=== PATIENT | female | born 1935 | race Caucasian/White ===

== ENCOUNTER → 2017-05-17 | Outpatient (CLI) | payer MEDICARE ==
--- NOTE | 2017-05-18 10:09 | MM ---
Reason for exam: screening (asymptomatic). Last mammogram was performed 1 year ago. History: Patient is postmenopausal. Family history of breast cancer in sister at age 60. Physical Findings: A clinical breast exam by your physician is recommended on an annual basis and results should be correlated with mammographic findings. MG 3D Screening Mammo W/Cad Bilateral CC and MLO view(s) were taken. Prior study comparison: May 15, 2016, bilateral MG 3d screening mammo w/cad. May 14, 2015, bilateral MG screening mammo w CAD. The breast tissue is heterogeneously dense. This may lower the sensitivity of mammography. No suspicious abnormality. No significant changes when compared with prior studies. ASSESSMENT: Negative, BI-RAD 1 RECOMMENDATION: Routine screening mammogram of both breasts in 1 year.
== END | disposition home or self-care (01) ==
LOC: RADMAMWWP 12:18
PROVIDERS: ATTEND Internal Medicine
DX: Z12.31 Encounter for screening mammogram for malignant neoplasm of breast (principal)
CPT/HCPCS: 77063; G0202

== ENCOUNTER → 2018-08-01 | Outpatient (CLI) | payer MEDICARE ==
--- NOTE | 2018-08-02 13:17 | MM ---
Reason for exam: screening (asymptomatic). Last mammogram was performed 1 year and 2 months ago. History: Patient is postmenopausal. Family history of breast cancer in sister at age 60. Physical Findings: A clinical breast exam by your physician is recommended on an annual basis and results should be correlated with mammographic findings. MG 3D Screening Mammo W/Cad Bilateral CC and MLO view(s) were taken. XCCM view(s) were taken of the right breast. Prior study comparison: May 17, 2017, bilateral MG 3d screening mammo w/cad. May 15, 2016, bilateral MG 3d screening mammo w/cad. The breast tissue is heterogeneously dense. This may lower the sensitivity of mammography. There are benign appearing round calcifications bilaterally. There is no discrete abnormality. ASSESSMENT: Benign, BI-RAD 2 RECOMMENDATION: Routine screening mammogram of both breasts in 1 year.
== END | disposition home or self-care (01) ==
LOC: RADMAMWWP 09:17
PROVIDERS: ATTEND Internal Medicine
DX: Z12.31 Encounter for screening mammogram for malignant neoplasm of breast (principal)
CPT/HCPCS: 77063; 77067

== ENCOUNTER → 2019-08-20 | Outpatient (CLI) | payer MEDICARE ==
--- NOTE | 2019-08-21 11:38 | MM ---
Reason for exam: screening (asymptomatic). Last mammogram was performed 1 year and 1 month ago. History: Patient is postmenopausal. Family history of breast cancer in sister at age 60. Physical Findings: A clinical breast exam by your physician is recommended on an annual basis and results should be correlated with mammographic findings. MG 3D Screening Mammo W/Cad Bilateral CC and MLO view(s) were taken. Prior study comparison: August 01, 2018, bilateral MG 3d screening mammo w/cad. May 17, 2017, bilateral MG 3d screening mammo w/cad. The breast tissue is heterogeneously dense. This may lower the sensitivity of mammography. There are benign appearing round calcifications bilaterally. There is no discrete abnormality. ASSESSMENT: Benign, BI-RAD 2 RECOMMENDATION: Routine screening mammogram of both breasts in 1 year.
== END | disposition home or self-care (01) ==
LOC: RADMAMWWP 09:09
PROVIDERS: ATTEND Internal Medicine
DX: Z12.31 Encounter for screening mammogram for malignant neoplasm of breast (principal)
CPT/HCPCS: 77063; 77067

== ENCOUNTER 2020-07-13 10:48 | Day surgery (SDC) | payer MEDICARE ==
[2020-07-09 14:38] VITALS: BMI 25.7
[~2020-07-13 10:48] MED LIST: ALPRAZolam 0.25 MG TAB PO PRN; ALPRAZolam 0.5 MG TAB PO PRN; ASPIRIN 325 MG TAB PO ONE; ATORVASTATIN 80 MG TAB PO ONE; NITROGLYCERIN SL TABS 0.4 MG TAB SUBLINGUAL PRN; fentaNYL (PF) 50 MCG/ML 2 ML AMP ONE
[2020-07-13] MEDS ORDERED: SODIUM CHLORIDE 0.9% 1,000 ML in EMPTY BAG 1 BAG IV ONE (11:00)
[2020-07-13] MEDS ORDERED: SODIUM CHLORIDE 0.9% 500 ML 1,000 ML IV ONE (11:20)
[2020-07-13] MEDS ORDERED: fentaNYL (PF) 50 MCG/ML 2 ML AMP ONE ×2 (11:24→14:47)
[2020-07-13] MEDS ORDERED: IV FLUID CONTINUATION 1,000 ML IV ONE (11:25)
[2020-07-13] MEDS: BENZOCAINE SPRAY 1 CAN MUCOUS MEM ONE ×2 (11:26→11:32)
[2020-07-13 11:33] LABS: Basophils # (A) 0.1 k/uL (0-0.2); Basophils % (A) 1 %; Eosinophils # (A) 0.1 k/uL (0-0.7); Eosinophils % (A) 1 %; HCT 44.5 % (34.0-46.0); HGB 14.7 gm/dL (11.4-16.0); Lymphocytes # (A) 1.8 k/uL (1.0-4.8); Lymphocytes % (A) 23 %; MCH 32.3 pg (25.0-35.0); MCHC 33.1 g/dL (31.0-37.0); MCV 97.6 fL (80.0-100.0); Mean Platelet Volume 7.4; Monocytes # (A) 0.5 k/uL (0-1.0); Monocytes % (A) 6 %; Neutrophils # (A) 5.2 k/uL (1.3-7.7); Neutrophils % (A) 67 %; Platelet Count 263 k/uL (150-450); RBC 4.56 m/uL (3.80-5.40); RDW 13.6 % (11.5-15.5); WBC 7.8 k/uL (3.8-10.6)
[2020-07-13] MEDS ORDERED: fentaNYL (PF) 50 MCG/ML 2 ML AMP IV ONE (11:45)
[2020-07-13] MEDS ORDERED: MIDAZOLAM 2 MG/2 ML VIAL IV ONE (11:45)
[2020-07-13 11:50] LABS: Calcium 10.2 mg/dL (8.4-10.2); Potassium 4.8 mmol/L (3.5-5.1)
[2020-07-13] MEDS ORDERED: LIDOCAINE 1% INJ 10MG/ML (20 ML MDV) ONE (13:17)
[2020-07-13] MEDS ORDERED: VERAPAMIL 2.5 MG/ML 2 ML AMP ONE (13:17)
[2020-07-13] MEDS ORDERED: LIDOCAINE 1% INJ 10MG/ML (20 ML MDV) SQ ONE (13:21)
[2020-07-13] MEDS ORDERED: ENALAPRILAT 1.25 MG/ML 1 ML VIAL ONE (13:26)
[2020-07-13] MEDS ORDERED: hydrALAZINE HCL 20 MG/ML 1 ML VIAL ONE (13:26)
[2020-07-13] MEDS ORDERED: ENALAPRILAT 1.25 MG/ML 1 ML VIAL IVP ONE (13:28)
[2020-07-13] MEDS: hydrALAZINE HCL 20 MG/ML 1 ML VIAL IVP ONE ×2 (13:28→13:37)
[2020-07-13] MEDS ORDERED: IOPAMIDOL-370 125ML BTL INJ ONE (13:42)
[2020-07-13] MEDS ORDERED: RX INFO: IV CONTRAST WAS GIVEN 1 EACH MISC MISCELLANE PRN (13:43)
[2020-07-13] MEDS ORDERED: SODIUM CHLORIDE 0.9% 1,000 ML IV SCH (13:45)
[2020-07-13] MEDS ORDERED: ATROPINE SULFATE 0.1 MG/ML 10ML SYRINGE ONE (13:53)
--- NOTE | 2020-07-13 14:04 | ECHOT ---
TRANSESOPHAGEAL ECHOCARDIOGRAM DATE OF SERVICE: 07/13/2020 PERFORMING PHYSICIAN: Abelino Escamilla MD. PROCEDURE PERFORMED: Transesophageal echocardiogram. INDICATION: This is a very a pleasant 85-year-old female patient with valvular heart disease and aortic stenosis and insufficiency was experiencing increasing in the shortness of breath with exertion. She underwent a surface echo recently and that revealed evidence of severe aortic stenosis and severe aortic insufficiency and because of that, she was brought today to undergo a KARI and heart catheterization. COMPLICATION: None. LEVEL OF SEDATION: Moderate with sedation length of 15 minutes. PROCEDURE DESCRIPTION: Please refer to diagnostic heart catheterization. After obtaining an informed consent, the patient was brought to the transesophageal echocardiogram suite. A pulse oximetry and heart rate monitors were attached to the patient. Subsequently, the transesophageal echocardiogram was advanced through the bite guard to the mid esophagus where 2D echocardiogram images as well as color Doppler images of various cardiac structures were obtained. The procedure was completed without any complication. FINDINGS: The left ventricular dimension and systolic function appeared to be within normal limits. The ejection fraction is probably in the range of 50%. The right ventricle appeared to be of normal size and function. The left atrium appeared to be severely dilated. The mitral valve appeared to be thickened and calcified with evidence of moderate mitral insufficiency. The aortic valve appeared to be also calcified and thickened with evidence of moderate aortic stenosis with a mean gradient of 28 and peak of 52, as well as moderate aortic insufficiency. The tricuspid valve appeared to have evidence of moderate tricuspid regurgitation. No evidence of pericardial effusion seen. CONCLUSION: 1. Low normal left ventricular dimension and systolic function. 2. Normal right ventricular dimension and systolic function. 3. Severe biatrial enlargement. 4. Aortic sclerosis with moderate aortic stenosis and moderate insufficiency. The mean gradient was 28 mmHg. 5. Thickened mitral valve leaflets with evidence of moderate mitral regurgitation. 6. Moderate tricuspid regurgitation. 7. No evidence of pericardial effusion. MMODL / IJN: [id number] /
[2020-07-13] MEDS ORDERED: NON FORMULARY DRUG (Magnesium Gluconate 500 MG Tab) PO SCH (14:15)
[2020-07-13] MEDS ORDERED: ONDANSETRON 4 MG/2 ML VIAL IVP STA (16:02)
--- NOTE | 2020-07-13 20:19 | US ---
EXAMINATION TYPE: US carotid duplex BILAT DATE OF EXAM: 07/13/2020 COMPARISON: US CLINICAL HISTORY: Pre-Op Cardiac Surgery. Pre op cardiac surgery. Previous smoker. EXAM MEASUREMENTS: RIGHT: Peak Systolic Velocity (PSV) cm/sec ----- Right CCA: 87.1 ----- Right ICA: 170.1 ----- Right ECA: 102.6 ICA/CCA ratio: 2.0 RIGHT: End Diastole cm/sec ----- Right CCA: 14.6 ----- Right ICA: 20.3 ----- Right ECA: 0.0 LEFT: Peak Systolic Velocity (PSV) cm/sec ----- Left CCA: 60.8 ----- Left ICA: 380.2 ----- Left ECA: 171.0 ICA/CCA ratio: 6.3 LEFT: End Diastole cm/sec ----- Left CCA: 11.3 ----- Left ICA: 59.6 ----- Left ECA: 0.0 VERTEBRALS (direction of flow): Right Vertebral: Antegrade Left Vertebral: Antegrade Rhythm: Normal Intimal thickening and plaque seen bilaterally. Hyperechoic plaque with shadowing seen right ICA, lef t carotid bifurcation, left ICA and left ECA. Elevated velocities right ICA, left ICA, and left ECA. Right ICA/CCA: 2.0. Left ICA/CCA: 6.3. Stenosi s visualized. Limited due to patient movement. IMPRESSION: Images and measurements suggest more than 70% stenosis in the left internal carotid artery and 50-70% stenosis in the right internal carotid artery. There is also stenosis in the external carotid arteries. Criteria for Assigning % of Stenosis / Diameter reduction (Estimation based on the indirect measurements of the internal carotid artery velocities (ICA PSV). 1. Normal (no stenosis)=ICA PSV < 125 cm/s: ratio < 2.0: ICA EDV<40 cm/s. 2. Less than 50% stenosis=ICA PSV < 125 cm/s: ratio < 2.0: ICA EDV<40 cm/s. 3. 50 to 69% stenosis=ICA PSV of 125 to 230 cm/s: ration 2.0 ? 4.0: ICA EDV 40-100 cm/s. 4. Greater than 70% stenosis to near occlusion= ICA PSV > 230 cm/s: ratio > 4.0: ICA EDV > 100 cm/s. 5. Near occlusion= ICA PSV velocities may be low or undetectable: variable ratio and ICA EDV. 6. Total occlusion=unable to detect flow.
[2020-07-13] MEDS: ATORVASTATIN 20 MG TAB PO SCH (21:21)
--- NOTE | 2020-07-13 21:55 | CC ---
CARDIAC CATHETERIZATION REPORT DATE OF SERVICE: 07/13/2020 PERFORMING PHYSICIAN: Abelino Escamilla M.D. PROCEDURE PERFORMED: Selective right and left coronary angiogram. INDICATION: This is a very pleasant 85-year-old female patient who is in reasonable physical and mental shape with aortic stenosis and hypertension and dyslipidemia and history of bradycardia. She was experiencing increasing shortness of breath with minimal exertion. Recent echocardiogram showed progression in the severity of the aortic stenosis as well as mitral regurgitation. Recent stress test came in to be remarkable for ischemia. Because of that, a heart catheterization was advised. APPROACH: Right common femoral artery. COMPLICATIONS: None. LEVEL OF SEDATION: Moderate, with sedation length of 15 minutes. PROCEDURE DESCRIPTION: After obtaining informed consent, the patient was brought to the cardiac molder labels. The right common femoral artery was cannulated using micropuncture technique. The micropuncture wire passed easily. Then I did place a 6-Palestinian sheath. After that I did selective right and left coronary angiogram using JL4 and JR4 catheters. The procedure was completed without any complication. SELECTIVE CORONARY ANGIOGRAM: 1. Right coronary artery is extremely calcified. The ostial of right coronary artery has a tight lesion that appeared to be in the range of 80% to 90%. The RCA in the mid and distal portions appeared to have mild disease only. 2. The left main is extremely calcified. The ostial left main has a tubular lesion that appeared to be in the range of 50% to 60%. There is post-stenotic dilatation identified. The left main bifurcates into LCX and LAD. 3. The LCX is a large-caliber vessel. It is a nondominant vessel and appeared to be angiographically normal. It gives rise to an OM1 and OM2 and both appeared to have mild disease only. 4. The LAD is a large-caliber vessel. The LAD was not well opacified, but there was no evidence of any significant or high-grade stenosis identified. CONCLUSION: 1. Calcified right and left coronary systems. 2. Critical disease involving the ostial right coronary artery. 3. Severe disease involving the ostial left main coronary artery. POST-PROCEDURE MANAGEMENT: 1. Consult surgeon for evaluation of coronary artery bypass grafting. 2. Follow up with the patient. MMODL / IJN: [id number] /
[2020-07-14 03:52] LABS: Hepatitis A Antibody IgM Non-Reactive (Non-Reactive); Hepatitis B Core IgM Non-Reactive (Non-Reactive); Hepatitis B Surface Antigen Non-Reactive (Non-Reactive); Hepatitis C IgG Antibody Non-Reactive (Non-Reactive)
[2020-07-14 06:01] LABS: Basophils # (A) 0.1 k/uL (0-0.2); Basophils % (A) 1 %; Eosinophils % (A) 1 %; HCT 37.2 % (34.0-46.0); HGB 12.4 gm/dL (11.4-16.0); Lymphocytes # (A) 1.7 k/uL (1.0-4.8); Lymphocytes % (A) 21 %; MCHC 33.4 g/dL (31.0-37.0); MCV 98.8 fL (80.0-100.0); Mean Platelet Volume 7.4; Monocytes # (A) 0.5 k/uL (0-1.0); Monocytes % (A) 7 %; Neutrophils # (A) 5.7 k/uL (1.3-7.7); Neutrophils % (A) 70 %; Platelet Count 218 k/uL (150-450); RBC 3.77 m/uL (3.80-5.40); RDW 13.7 % (11.5-15.5); WBC 8.1 k/uL (3.8-10.6)
[2020-07-14 06:16] LABS: Albumin 3.6 g/dL (3.5-5.0); Magnesium 2.2 mg/dL (1.6-2.3); Total Bilirubin 0.9 mg/dL (0.2-1.3); Total Protein 6.3 g/dL (6.3-8.2)
[2020-07-14 06:18] LABS: INR 0.9 (<1.2); Prothrombin Time 9.9 sec (9.0-12.0)
[2020-07-14 06:34] LABS: Partial Thromboplastin Time 21.9 sec (22.0-30.0)
--- NOTE | 2020-07-14 07:33 | XR ---
EXAMINATION TYPE: XR chest 2V DATE OF EXAM: 07/14/2020 COMPARISON: None HISTORY: 85-year-old female preop cardiac surgery TECHNIQUE: PA and lateral views FINDINGS: Heart upper limits of normal in size. Atherosclerotic arch calcifications. Diffuse interstitial densi ty. Possible trace effusion on the lateral view. IMPRESSION: Borderline cardiomegaly and interstitial change. Trace effusion suggested on the lateral view. Correl ate for mild CHF with pulmonary vascular congestion.
[2020-07-14] MEDS ORDERED: NON FORMULARY DRUG (Fish Oil/Dha/Epa [Fish Oil 1,200 Mg Fish Oil] 1 EACH Capsule) PO SCH (09:00)
[2020-07-14] MEDS: CALCIUM CARB-VIT D 500MG-200UN 1 EACH TAB PO SCH (09:09)
[2020-07-14] MEDS: ASPIRIN 81 MG PO SCH (09:09)
--- NOTE | 2020-07-14 09:19 | CT ---
EXAMINATION TYPE: CT chest wo con DATE OF EXAM: 07/14/2020 COMPARISON: None HISTORY: evaluation of aorta calcifications CT DLP: 304.[address] of the chest was performed with lung and mediastinal window settings submitted. The la ck of contrast limits evaluation of the vascular, mediastinal and parenchymal structures including th e upper abdomen. LUNGS: The lungs are clear and free of infiltrate. No atelectasis. No pulmonary nodule or mass is de tected. No pleural effusion. No CT evidence of interstitial lung disease. MEDIASTINUM/LIVAN: Aortic evaluation is limited given lack of intravenous contrast. There is atheromat ous changes seen throughout the thoracic aorta. 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 The heart is mildly enlarged. No evidence for mediastinal mass. No lymph nodes gr eater than 1cm. UPPER ABDOMEN: Atrophic changes of the right kidney. Renal nephrolithiasis identified. OTHER: No significant other abnormality. IMPRESSION: 1. Atheromatous and ectatic change of the thoracic aorta. 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
--- NOTE | 2020-07-14 10:44 | P.GSCN ---
History of Present Illness Consult date: 07/14/20 Reason for Consult: Coronary artery disease, valvular heart disease Requesting physician: Abelino Escamilla History of present illness: This is an 85-year-old active female who follows on an outpatient basis with Dr. Cornell for primary care as well as Dr. Escamilla for cardiology. She has a previous medical history of aortic stenosis, hypertension, hyperlipidemia, TIAs with bilateral carotid stenosis followed by Dr. Dexter, and previous tobacco dependence. She has been expensing symptoms of increased shortness of breath w ith exertion, denies any chest pain, lower extremity edema, syncope, or any other symptomatology. Her most recent transthoracic echocardiogram completed in Dr. Escamilla's office demonstrating progression in her valvular heart disease with severe aortic stenosis and severe aortic insufficiency. She had a stress test which was abnormal. She was recommended to undergo transesophageal echocardiogram and heart catheterization which were completed yesterday. Heart catheterization demonstrated ostial RCA stenosis 80-90% and very heavily calcified ostial left main stenosis 50-60%. Transesophageal echocardiogram demonstrated low normal left ventricular systolic function with EF 50%, dilated left atrium, moderate mitral regurgitation, moderate aortic stenosis with peak/mean gradients 52 mmHg/28 mmHg, moderate aortic insufficiency, and moderate tricuspid regurgitation. Due to these findings Dr. Zamarripa from cardiothoracic surgery was consulted for recommendations. Of note after her procedures y esterday patient's heart rate dropped into the 30s with low blood pressure, patient was given atropine and fluid boluses with improvement in her hemodynamics. Review of Systems Review of systems was completed and was negative except as noted - Cardiovascular Reports as per HPI, Reports dyspnea on exertion 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 Past Anesthesia/Blood Transfusion Reactions: No Reported Reaction Past Psychological History: No Psychological Hx Reported Smoking Status: Former smoker Past Alcohol Use History: Rare Past Drug Use History: None Reported - Past Family History Brother(s) Family Medical History: Cancer Sister(s) Family Medical History: Cancer Medications and Allergies Home Medications Medication Instructions Recorded Confirmed Type Alendronate Sodium 70 mg PO MO 03/04/15 07/13/20 History Aspirin 81 mg PO DAILY 03/04/15 07/13/20 History Calcium Carbonate/Vitamin D3 1 each PO DAILY 03/04/15 07/13/20 History [Calcium 600 + Vit D Tablet] Fish Oil/Dha/Epa [Fish Oil 1,200 1 each PO DAILY 03/04/15 07/13/20 History mg Fish Oil] Magnesium Gluconate [Magonate] 500 mg PO ONCE 03/04/15 07/13/20 History Simvastatin [Zocor] 40 mg PO HS 03/04/15 07/13/20 History amLODIPine [Norvasc] 5 mg PO QAM 03/04/15 07/13/20 History atenoloL [Atenolol] 12.5 mg PO DAILY 07/09/20 07/13/20 History Allergies Allergy/AdvReac Type Severity Reaction Status Date / Time venom-honey bee Allergy Swelling Verified 07/09/20 14:29 [bee venom (honey bee)] Surgical - Exam Vital Signs Temp Pulse Resp BP Pulse Ox 98 F 48 L 16 192/85 97 07/13/20 11:16 07/13/20 11:16 07/13/20 11:16 07/13/20 11:16 07/13/20 11:16 - General well developed, well nourished, no distress, no pain - Eyes normal ocular movement - ENT Patient has none of her own teeth dentures - Neck no masses, no bruits, trachea midline - Respiratory Lungs sounds diminished bilaterally. Respirations even, nonlabored. Currently on room air with oxygen saturation 94%. No chest wall deformities. No clubbing or cyanosis present. - Cardiovascular S1, S2 present. Systolic murmur heard. Slow but regular rate and rhythm, sinus bradycardia on telemetry. Palpable peripheral pulses bilaterally. No edema present. No calf pain or tenderness noted. - Abdomen Abdomen: soft, non tender, bowel sounds - Genitourinary Deferred - Rectum Deferred - Integumentary no rash, no growths - Neurologic normal coordination, normal sensation - Musculoskeletal normal posture - Psychiatric oriented to time, oriented to person, oriented to place, speech is normal Results - Labs 07/14/20 05:15 07/14/20 05:15 Abnormal Lab Results - Last 24 Hours (Table) 07/13/20 07/14/20 07/14/20 Range/Units 11: 05:15 05:15 RBC 3.77 L (3.80-5.40) m/uL APTT 21.9 L (22.0-30.0) sec BUN 30 H (7-17) mg/dL Creatinine 1.46 H (0.52-1.04) mg/dL Glucose 110 H (74-99) mg/dL AST (14-36) U/L HDL Cholesterol (40-60) mg/dL 07/14/20 Range/Units 05:15 RBC (3.80-5.40) m/uL APTT (22.0-30.0) sec BUN 32 H (7-17) mg/dL Creatinine 1.52 H (0.52-1.04) mg/dL Glucose (74-99) mg/dL AST 42 H (14-36) U/L HDL Cholesterol 30 L (40-60) mg/dL Microbiology - Last 24 Hours (Table) 07/13/20 22:40 Nasal Screen MRSA/MSSA - Preliminary Nasal Swab Diabetes panel 07/13/20 07/14/20 Range/Units 11: 05:15 Sodium 141 139 (137-145) mmol/L Potassium 4.8 5.0 (3.5-5.1) mmol/L Chloride 105 107 (98-107) mmol/L Carbon Dioxide 27 28 (22-30) mmol/L BUN 30 H 32 H (7-17) mg/dL Creatinine 1.46 H 1.52 H (0.52-1.04) mg/dL Glucose 110 H 94 (74-99) mg/dL Calcium 10.2 9.0 (8.4-10.2) mg/dL AST 42 H (14-36) U/L ALT 14 (4-34) U/L Alkaline Phosphatase 45 (38-126) U/L Total Protein 6.3 (6.3-8.2) g/dL Albumin 3.6 (3.5-5.0) g/dL Triglycerides 133 (<150) mg/dL HDL Cholesterol 30 L (40-60) mg/dL Thyroid panel 07/14/20 Range/Units 05:15 TSH 1.950 (0.465-4.680) mIU/L Calcium panel 07/13/20 07/14/20 Range/Units 11:11 05:15 Calcium 10.2 9.0 (8.4-10.2) mg/dL Albumin 3.6 (3.5-5.0) g/dL Pituitary panel 07/13/20 07/14/20 Range/Units 11:11 05:15 Sodium 141 139 (137-145) mmol/L Potassium 4.8 5.0 (3.5-5.1) mmol/L Chloride 105 107 (98-107) mmol/L Carbon Dioxide 27 28 (22-30) mmol/L BUN 30 H 32 H (7-17) mg/dL Creatinine 1.46 H 1.52 H (0.52-1.04) mg/dL Glucose 110 H 94 (74-99) mg/dL Calcium 10.2 9.0 (8.4-10.2) mg/dL TSH 1.950 (0.465-4.680) mIU/L Adrenal panel 07/13/20 07/14/20 Range/Units 11:11 05:15 Sodium 141 139 (137-145) mmol/L Potassium 4.8 5.0 (3.5-5.1) mmol/L Chloride 105 107 (98-107) mmol/L Carbon Dioxide 27 28 (22-30) mmol/L BUN 30 H 32 H (7-17) mg/dL Creatinine 1.46 H 1.52 H (0.52-1.04) mg/dL Glucose 110 H 94 (74-99) mg/dL Calcium 10.2 9.0 (8.4-10.2) mg/dL Total Bilirubin 0.9 (0.2-1.3) mg/dL AST 42 H (14-36) U/L ALT 14 (4-34) U/L Alkaline Phosphatase 45 (38-126) U/L Total Protein 6.3 (6.3-8.2) g/dL Albumin 3.6 (3.5-5.0) g/dL - Imaging Chest x-ray: image reviewed Additional studies: Heart catheterization and KARI films reviewed with Dr. Zamarripa Assessment and Plan Assessment: 1. Coronary artery disease with left main disease 2. Moderate aortic stenosis, moderate aortic insufficiency, peak/mean gradient 52 mmHg/20 mmHg on KARI 3. Moderate mitral regurgitation, moderate tricuspid regurgitation and KARI 4. Bradycardia 5. Hypertension 6. Hyperlipidemia, treated, cholesterol 107, LDL 50 7. History of TIAs 8. Bilateral carotid stenosis followed by Dr. Dexter, current carotid Doppler greater than 70% left internal carotid artery, 50-70% right internal carotid artery 9. Previous tobacco dependence Plan: The patient was seen and examined at the bedside with Dr. Zamarripa. Chart/diagnostics were reviewed. The usual perioperative course of open surgery was discussed with the patient and her daughter yesterday, risks and benefits were reviewed, all questions were answered. We recommend continuing aspirin, statin, beta tabatha. CT of the chest was ordered to evaluate for calcification in the ascending aorta. Preoperative testing was initiated. More recommendations to follow once preoperative testing has been completed and reviewed. Continue medical management per Dr. Escamilla. Thank you Dr. Escamilla for this consult. We look forward to working with you in the care of your patient The patient was seen and examined and I agree with the assessment and plan documented by the nurse practitioner Time with Patient: Greater than 30
[2020-07-14] MEDS: amLODIPine 5 MG TAB PO SCH (11:26)
--- NOTE | 2020-07-14 13:11 | P.PN ---
Subjective Progress Note Date: 07/14/20 HISTORY OF PRESENT ILLNESS: Patient is status post cardiac catheterization with Dr. Escamilla revealing calcified right and left coronary systems, critical disease involving the ostial right coronary artery, and severe disease involving the ostial left main coronary artery. She also underwent KARI revealing severe right atrial enlargement, aortic sclerosis with moderate aortic stenosis and moderate insufficiency. Thickened mitral valve leaflets with evidence of moderate mitral regurgitation and moderate tricuspid regurgitation. Cardiothoracic surgery was consulted for evaluation. Patient was examined this morning at the bedside. She denies chest pain or pressure. She states she has been up ambulating to the bathroom without shortness of breath. Blood pressure this morning 176/51. Heart rate in the 60s. PHYSICAL EXAM: VITAL SIGNS: Reviewed. GENERAL: Well-developed in no acute distress. NECK: Supple. No JVD or thyromegaly LUNGS: Respirations even and unlabored. Lungs essentially clear to auscultation bilaterally. HEART: Bradycardic. Regular rate and rhythm. S1 and S2 heard. Systolic murmur. EXTREMITIES: Normal range of motion. No clubbing or cyanosis. Peripheral pulses intact. No lower extremity edema ASSESSMENT: Coronary artery disease with left main disease Moderate aortic stenosis and moderate aortic insufficiency Moderate mitral regurgitation Moderate tricuspid regurgitation Hypertension Hyperlipidemia Bilateral carotid stenosis History of nicotine dependence PLAN: Resume home cardiac medications Monitor blood pressure Continue telemetry monitoring Cardiothoracic surgery has been consulted. Await evaluation and recommendations. Nurse practitioner note has been reviewed by physician. Signing provider agrees with the documented findings, assessment, and plan of care. Objective - Vital Signs Vital signs: Vital Signs Temp 98.4 F 07/14/20 12:00 Pulse 55 L 07/14/20 12:00 Resp 18 07/14/20 12:00 BP 145/59 07/14/20 12:00 Pulse Ox 92 L 07/14/20 12:00 Intake & Output 07/13/20 07/14/20 07/14/20 18:59 06:59 18:59 Intake Total 1430 200 240 Output Total 200 Balance 1430 200 40 Weight 59.6 kg 62.5 kg Intake: IV 1250 Sodium Chloride 0.9% 1, 750 000 ml @ 75 mls/hr IV . [id number] [facility] Rx#:[id number] Intake, IV Titration 0 200 Amount Sodium Chloride 0.9% 1, 0 000 ml @ 75 mls/hr IV . [id number] [facility] Rx#:[id number] Sodium Chloride 0.9% 1, 200 000 ml In Empty Bag 1 bag @ 100 mls/hr IV .Q10H [facility] Rx#:[id number] Oral 180 240 Output: Urine 200 Other: Voiding Method Toilet Toilet # Voids 3 1 - Labs CBC & Chem 7: 07/14/20 05:15 07/14/20 05:15 Labs: Abnormal Lab Results - Last 24 Hours (Table) 07/14/20 07/14/20 07/14/20 Range/Units 05:15 05:15 05:15 RBC 3.77 L (3.80-5.40) m/uL APTT 21.9 L (22.0-30.0) sec BUN 32 H (7-17) mg/dL Creatinine 1.52 H (0.52-1.04) mg/dL AST 42 H (14-36) U/L HDL Cholesterol 30 L (40-60) mg/dL Microbiology - Last 24 Hours (Table) 07/13/20 22:40 Nasal Screen MRSA/MSSA - Preliminary Nasal Swab
[2020-07-14 15:59] LABS: Hemoglobin A1C 5.8 % (4.0-6.0)
[2020-07-14] MEDS: ATORVASTATIN 20 MG TAB PO SCH (20:33)
[2020-07-15] MEDS: CALCIUM CARB-VIT D 500MG-200UN 1 EACH TAB PO SCH (08:55)
[2020-07-15] MEDS: amLODIPine 5 MG TAB PO SCH (08:55)
[2020-07-15] MEDS: ASPIRIN 81 MG PO SCH (08:55)
[2020-07-15 09:02] VITALS: PULSE 57; RESP 17
[2020-07-15 11:47] VITALS: TEMP 98
[2020-07-15 12:50] VITALS: BP 152/70
--- NOTE | 2020-07-15 13:02 | P.DS ---
Providers Date of admission: 85-year-old female who recently had a positive stress test and was recommended to have a cardiac cath. She underwent cardiac catheterization with Dr. Escamilla revealing calcified right and left coronary systems, critical disease involving the ostial right coronary artery, and severe disease involving the ostial left main coronary artery. She also underwent KARI revealing severe right atrial enlargement, aortic sclerosis with moderate aortic stenosis and moderate insufficiency. Thickened mitral valve leaflets with evidence of moderate mitral regurgitation and moderate tricuspid regurgitation. Cardio thoracic surgery was consulted to evaluate patient. Dr. Zamarripa evaluated the patient and determine the patient's aorta was severely calcified throughout making unclampable for surgery. She was deemed too high risk for cardiac surgery and medical management was recommended. The patient is currently stable for discharge today. She is to follow up outpatient with Dr. Hernandez. Please see EMR for further hospital course details. 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 Signing provider agrees with the documented findings, assessment, and plan of care. Attending physician: Abelino Escamilla Consults: 07/13/20 14:10 Consult Physician Stat Consulting Provider: Louie Naqvi Consult Reason/Comments: valve and blockages Do you want consulting provider notified?: Yes Primary care physician: Raza Cornell Plan - Discharge Summary Discharge Rx Participant: Yes New Discharge Prescriptions: Continue Simvastatin [Zocor] 40 mg PO HS Magnesium Gluconate [Magonate] 500 mg PO ONCE Aspirin 81 mg PO DAILY amLODIPine [Norvasc] 5 mg PO QAM Fish Oil/Dha/Epa [Fish Oil 1,200 mg Fish Oil] 1 each PO DAILY Calcium Carbonate/Vitamin D3 [Calcium 600-Vit D3 400 Tablet] 1 each PO DAILY Alendronate Sodium 70 mg PO MO atenoloL [Atenolol] 12.5 mg PO DAILY Discharge Medication List Alendronate Sodium 70 mg PO MO 03/04/15 [History] Aspirin 81 mg PO DAILY 03/04/15 [History] Calcium Carbonate/Vitamin D3 [Calcium 600-Vit D3 400 Tablet] 1 each PO DAILY 03/04/15 [History] Fish Oil/Dha/Epa [Fish Oil 1,200 mg Fish Oil] 1 each PO DAILY 03/04/15 [History] Magnesium Gluconate [Magonate] 500 mg PO ONCE 03/04/15 [History] Simvastatin [Zocor] 40 mg PO HS 03/04/15 [History] amLODIPine [Norvasc] 5 mg PO QAM 03/04/15 [History] atenoloL [Atenolol] 12.5 mg PO DAILY 07/09/20 [History] Follow up Appointment(s)/Referral(s): Abelino Escamilla MD [STAFF PHYSICIAN] - 1 Week
[2020-07-19] MEDS ORDERED: NON FORMULARY DRUG (Alendronate Sodium [Alendronate Sodium] 70 MG Tablet) PO SCH (14:05)
== END 2020-07-15 14:08 | disposition home or self-care (01) ==
LOC: CATHCVL 10:48 → 3SCARD 17:03 → CATHCVL 07-15 14:08
PROVIDERS: ATTEND Internal Medicine Interventional Cardiology
DX: I25.10 Atherosclerotic heart disease of native coronary artery without angina pectoris (principal); I25.84 Coronary atherosclerosis due to calcified coronary lesion; I08.3 Combined rheumatic disorders of mitral, aortic and tricuspid valves; I65.23 Occlusion and stenosis of bilateral carotid arteries; I71.2 Thoracic aortic aneurysm, without rupture; I10 Essential (primary) hypertension; E78.5 Hyperlipidemia, unspecified; R00.1 Bradycardia, unspecified; Z82.49 Family history of ischemic heart disease and other diseases of the circulatory system; Z72.0 Tobacco use; Z79.899 Other long term (current) drug therapy
CPT/HCPCS: 94150; 93312; 93320; 93005; 93325; 93454; 80061; 80053; 80048; 80074; 84443; 83735; 85025 ×2; 85610; 85730; 87070; 83036; 71046; 93970; 93922; 93880; 71250; C1769 ×3; C1894 ×2; J2250; J0360; J2405; J2001; J0461; J3010; Q9967

== ENCOUNTER → 2020-10-21 | Outpatient (CLI) | payer MEDICARE ==
--- NOTE | 2020-10-22 14:02 | MM ---
Reason for exam: screening (asymptomatic). Last mammogram was performed 1 year and 2 months ago. History: Patient is postmenopausal. Family history of breast cancer in sister at age 60. Physical Findings: A clinical breast exam by your physician is recommended on an annual basis and results should be correlated with mammographic findings. MG 3D Screening Mammo W/Cad Bilateral CC and MLO view(s) were taken. Prior study comparison: August 20, 2019, bilateral MG 3d screening mammo w/cad. August 01, 2018, bilateral MG 3d screening mammo w/cad. The breast tissue is heterogeneously dense. This may lower the sensitivity of mammography. Stable benign calcifications. There is no discrete abnormality. No significant changes when compared with prior studies. ASSESSMENT: Benign, BI-RAD 2 RECOMMENDATION: Routine screening mammogram of both breasts in 1 year.
== END | disposition home or self-care (01) ==
LOC: RADMAMWWP 07:48
PROVIDERS: ATTEND Nurse Practitioner Adult Health
DX: Z12.31 Encounter for screening mammogram for malignant neoplasm of breast (principal)
CPT/HCPCS: 77063; 77067

== ENCOUNTER 2021-03-26 17:56 | Emergency (ER) | payer MEDICARE ==
[2021-03-26 18:04] VITALS: TEMP 98.7
[2021-03-26 18:15] VITALS: PULSE 58; RESP 20
--- NOTE | 2021-03-26 18:23 | ED ---
Skin/Abscess/FB HPI - General Chief complaint: Skin/Abscess/Foreign Body Stated complaint: fall, skin tear rt arm Source: patient, family, RN notes reviewed Mode of arrival: ambulatory Limitations: no limitations - History of Present Illness Initial comments: 85-year-old white female, alert and oriented 4 in no acute distress, presents to the emergency room after tripping in the house sustaining a skin tear to the right upper extremity, mid upper arm and distal forearm. Patient states that her tetanus shot is not up-to-date. She denies any pain and she has full range of motion. She states that any slight trauma causes skin tears. Family at bedside states that she witnessed the patient fall and did not hit her head there was no loss of consciousness. Patient denies any C-spine tenderness. Patient has a history of high blood pressure family states that she has white coat syndrome. MD complaint: laceration -: hour(s) (Less than an hour) Tetanus Up to Date: no Location: RUE Severity scale (1-10): 0 Associated symptoms: denies other symptoms Treatments Prior to Arrival: none - Related Data Home Medications Medication Instructions Recorded Confirmed Alendronate Sodium 70 mg PO MO 03/04/15 07/13/20 Aspirin 81 mg PO DAILY 03/04/15 07/13/20 Calcium Carbonate/Vitamin D3 1 each PO DAILY 03/04/15 07/13/20 [Calcium 600-Vit D3 400 Tablet] Fish Oil/Dha/Epa [Fish Oil 1,200 1 each PO DAILY 03/04/15 07/13/20 mg Fish Oil] Magnesium Gluconate [Magonate] 500 mg PO ONCE 03/04/15 07/13/20 Simvastatin [Zocor] 40 mg PO HS 03/04/15 07/13/20 amLODIPine [Norvasc] 5 mg PO QAM 03/04/15 07/13/20 atenoloL [Atenolol] 12.5 mg PO DAILY 07/09/20 07/13/20 Allergies Allergy/AdvReac Type Severity Reaction Status Date / Time venom-honey bee Allergy Swelling Verified 03/26/21 18:04 [bee venom (honey bee)] Review of Systems ROS Statement: Those systems with pertinent positive or pertinent negative responses have been documented in the HPI. ROS Other: All systems not noted in ROS Statement are negative. Past Medical History Past Medical History: Coronary Artery Disease (CAD), CVA/TIA, Hyperlipidemia, Hypertension, Vascular Disorder Additional Past Medical History / Comment(s): recent hx of SOB, CVA X2, no residual effects, states following with Dr Dexter for some blockages in carotid arteries and legs History of Any Multi-Drug Resistant Organisms: None Reported Past Surgical History: Heart Catheterization, Orthopedic Surgery, Tubal Ligation Additional Past Surgical History / Comment(s): leora carpal tunnel, leora cataracts, [facility] 07/13/2020-TRIPLE VESSES DX Past Anesthesia/Blood Transfusion Reactions: No Reported Reaction Past Psychological History: No Psychological Hx Reported Smoking Status: Former smoker Past Alcohol Use History: Rare Past Drug Use History: None Reported - Past Family History Brother(s) Family Medical History: Cancer Sister(s) Family Medical History: Cancer General Exam Limitations: no limitations General appearance: alert, in no apparent distress Head exam: Present: atraumatic, normocephalic, normal inspection Eye exam: Present: normal appearance, PERRL, EOMI. Absent: scleral icterus, conjunctival injection, periorbital swelling ENT exam: Present: normal exam, normal oropharynx, mucous membranes moist Neck exam: Present: normal inspection, full ROM. Absent: tenderness, meningismus, lymphadenopathy, thyromegaly Respiratory exam: Present: normal lung sounds bilaterally. Absent: respiratory distress, wheezes, rales, rhonchi, stridor, chest wall tenderness, accessory muscle use, decreased breath sounds, prolonged expiratory Cardiovascular Exam: Present: regular rate, normal rhythm, normal heart sounds. Absent: systolic murmur, diastolic murmur, rubs, gallop, clicks GI/Abdominal exam: Present: soft, normal bowel sounds. Absent: distended, tenderness, guarding, rebound, rigid Extremities exam: Present: normal inspection, full ROM, normal capillary refill. Absent: tenderness, pedal edema, joint swelling, calf tenderness Back exam: Present: full ROM. Absent: tenderness, CVA tenderness (R), CVA tenderness (L), muscle spasm, paraspinal tenderness, vertebral tenderness Neurological exam: Present: alert, oriented X3, CN II-XII intact Psychiatric exam: Present: normal affect, normal mood Skin exam: Present: warm, dry, intact, normal color, other (Skin tears to right upper arm and right distal forearm). Absent: rash, cyanosis, diaphoretic, erythema, petechiae, pallor, mottled Course Vital Signs 03/26/21 03/26/21 03/26/21 18:00 18:14 18:25 Temperature 98.7 F Pulse Rate 62 58 L Respiratory 16 20 Rate Blood Pressure 196/119 201/60 180/60 O2 Sat by Pulse 98 96 Oximetry Procedures - Laceration Laceration #1 Site: upper extremity Description: flap (Skin tear to the upper and lower forearm) Depth: simple, single layer Sedation/Analgesia: none Type of Sutures: other (Dermal glue) Medical Decision Making - Medical Decision Making 85-year-old well-appearing patient anal 4, has no complaints of pain. She presents with skin tears to the right upper approximately 3 x 6 cm and right lower forearm approximately 4 cm. Her wounds were irrigated with normal saline, approximated and closed with Steri-Strips and dermal glue. Reasons tetanus shot was updated. Case was discussed with Dr. Herrera patient will be discharged home follow-up with primary care doctor and directed to return if worsening symptoms including signs of infection, or fever. Disposition Clinical Impression: Skin tear, Fall Disposition: HOME SELF-CARE Condition: Good Instructions (If sedation given, give patient instructions): Fall Prevention for Older Adults (ED), Skin Adhesive Care (ED), Skin Tear (ED) Additional Instructions: Keep wounds clean. Follow-up with the primary care doctor in 1 week. Return if any worsening symptoms including signs of infection, fever or drainage. Is patient prescribed a controlled substance at d/c from ED?: No Referrals: None,Stated [Primary Care Provider] - 1-2 days Time of Disposition: 18:36
[2021-03-26 18:26] VITALS: BP 180/60
[2021-03-26] MEDS ORDERED: DIPH,PERTUS(ACELL)TETVAC-LF 0.5 ML VIAL IM ONE (18:32)
[2021-03-26] MEDS ORDERED: TOPICAL SKIN ADHESIVE 1 EACH AMP TOPICAL ONE (18:32)
[2021-03-26] MEDS ORDERED: LIDOCAINE/EPINEPHR/TETRACAINE 5 ML BOTTLE TOPICAL ONE (18:33)
== END 2021-03-26 19:21 | disposition home or self-care (01) ==
LOC: EC 17:56
DX: S41.111A Laceration without foreign body of right upper arm, initial encounter (principal); I10 Essential (primary) hypertension; I25.10 Atherosclerotic heart disease of native coronary artery without angina pectoris; E78.5 Hyperlipidemia, unspecified; Z79.899 Other long term (current) drug therapy; Z87.891 Personal history of nicotine dependence; Z91.030 Bee allergy status; Z23 Encounter for immunization; W01.0XXA Fall on same level from slipping, tripping and stumbling without subsequent striking against object, initial encounter
CPT/HCPCS: 12001; 90471; 90715; 99282; 99285

== ENCOUNTER 2021-07-05 06:45 | Day surgery (SDC) | payer MEDICARE ==
[2021-07-01 13:47] VITALS: BMI 25.0
[~2021-07-05 06:45] MED LIST changes: -ASPIRIN 325 MG TAB PO ONE; +ASPIRIN 325 MG TAB PO STA; -ATORVASTATIN 80 MG TAB PO ONE; +ATORVASTATIN 80 MG TAB PO STA; +HEPARIN SODIUM,PORCINE 10,000 UNIT in SODIUM CHLORIDE 0.9% 1,000 ML IRRIGATION PRN; +HEPARIN SODIUM,PORCINE 2,500 UNIT in SODIUM CHLORIDE 0.9% 250 ML IRRIGATION PRN; +SODIUM CHLORIDE 0.9% 1,000 ML in EMPTY BAG 1 BAG IV SCH; -fentaNYL (PF) 50 MCG/ML 2 ML AMP ONE
[2021-07-05] MEDS ORDERED: SODIUM CHLORIDE 0.9% 1,000 ML in EMPTY BAG 1 BAG IV ONE (07:00)
[2021-07-05] MEDS ORDERED: SODIUM CHLORIDE 0.9% 1,000 ML IV ONE (07:05)
[2021-07-05 07:30] VITALS: RESP 16; TEMP 97.9
[2021-07-05 08:08] LABS: Basophils # (A) 0.1 k/uL (0-0.2); Basophils % (A) 1 %; Eosinophils # (A) 0.2 k/uL (0-0.7); Eosinophils % (A) 3 %; HCT 38.3 % (34.0-46.0); HGB 12.9 gm/dL (11.4-16.0); Lymphocytes % (A) 17 %; MCH 32.8 pg (25.0-35.0); MCHC 33.7 g/dL (31.0-37.0); MCV 97.2 fL (80.0-100.0); Mean Platelet Volume 7.3; Monocytes # (A) 0.4 k/uL (0-1.0); Monocytes % (A) 7 %; Neutrophils # (A) 4.3 k/uL (1.3-7.7); Neutrophils % (A) 71 %; Platelet Count 251 k/uL (150-450); RBC 3.94 m/uL (3.80-5.40); RDW 13.5 % (11.5-15.5); WBC 6.1 k/uL (3.8-10.6)
[2021-07-05 08:36] LABS: Magnesium 2.3 mg/dL (1.6-2.3)
[2021-07-05] MEDS ORDERED: VERAPAMIL 2.5 MG/ML 2 ML AMP ONE (09:02)
[2021-07-05] MEDS ORDERED: LIDOCAINE 1% INJ 10MG/ML (20 ML MDV) ONE (09:02)
[2021-07-05] MEDS ORDERED: HEPARIN SODIUM 1,000 UN/ML (10ML VL) ONE (09:05)
[2021-07-05] MEDS ORDERED: MIDAZOLAM 2 MG/2 ML VIAL IVP ONE (09:14)
[2021-07-05] MEDS ORDERED: LIDOCAINE 1% INJ 10MG/ML (20 ML MDV) SQ ONE (09:14)
[2021-07-05] MEDS ORDERED: IOPAMIDOL-370 125ML BTL INJ ONE (09:30)
[2021-07-05] MEDS ORDERED: RX INFO: IV CONTRAST WAS GIVEN 1 EACH MISC MISCELLANE PRN (09:37)
[2021-07-05] MEDS ORDERED: SODIUM CHLORIDE 0.9% 1,000 ML IV SCH (09:45)
--- NOTE | 2021-07-05 09:59 | CC ---
CARDIAC CATHETERIZATION REPORT PERFORMING PHYSICIAN: Abelino Escamilla M.D. PROCEDURE PERFORMED: Selective right and left coronary angiogram. INDICATION: Coronary artery disease and valvular heart disease. This is an 86-year-old female patient who continues to be symptomatic. She underwent a heart catheterization within the last year, but we could not engage her left coronary system well. She was seen. The plan is to send the patient for open heart surgery, but we need to further clarify the severity of the CAD. APPROACH: Right common femoral artery. COMPLICATIONS: None. LEVEL OF SEDATION: Moderate, with sedation length of 16 minutes. PROCEDURE DESCRIPTION: After obtaining informed consent, the patient was brought to the cardiac coreroom foundry laborer. The right common femoral artery was cannulated using micropuncture technique. The micropuncture wire passed easily. Then I placed a 6-Micronesian sheath 11 cm at the right common femoral artery. I did selective right coronary angiogram using a JR4 catheter. Attempting to do left coronary angiogram using JL4 was unsuccessful. There was an extremely tortuous and calcified aortoiliac, and because of that I decided to use a 23 cm Brite Tip sheath. With that I was able to engage the left coronary system better using JL4.5 catheters. The procedure was completed without any complication. SELECTIVE CORONARY ANGIOGRAM: 1. The RCA is extremely calcified with an ostial lesion that appeared to be in the range of 80% to 90%. The mid and distal RCA appeared to have mild disease only. 2. The left main is extremely calcified with an ostial lesion that appeared to be in the range of 90% to 95%. The distal left main has another lesion that appeared to be in the range of 30% to 40%. The left main bifurcates into LCX and LAD. 3. The LCX is a large-caliber vessel. It is a nondominant vessel. The LCX is normal but gives rise to an OM branch which has an ostial lesion that appeared to be in the range of 50%. 4. The LAD. The LAD is a large-caliber vessel. The LAD has mild disease in the proximal portion. It gives rise to a large diagonal branch which has mild disease only. CONCLUSION: 1. Extremely calcified right and left coronary system. 2. Critical disease involving the ostial right coronary artery. 3. Critical disease involving the ostial left main coronary artery. POSTPROCEDURE MANAGEMENT: Patient to be seen by cardiothoracic surgeon for evaluation of coronary artery bypass grafting. MMJOSÉ / IJN: [id number] /
[2021-07-05 12:18] LABS: Chol/HDL Ratio 3.31 Ratio; HDL Cholesterol 38.4 mg/dL (40.00-60.00); LDL Cholesterol,Calculated 61.2 mg/dL (0.0-131.0); VLDL Calculation 27.4 mg/dL (5.00-40.00)
[2021-07-05 12:19] LABS: Hepatitis A Antibody IgM Nonreactive (Nonreactive); Hepatitis B Core IgM Nonreactive (Nonreactive); Hepatitis B Surface Antigen Nonreactive (Nonreactive); Hepatitis C IgG Antibody Nonreactive (Nonreactive)
[2021-07-05 15:56] LABS: Albumin 3.9 g/dL (3.5-5.0); Calcium 9.7 mg/dL (8.4-10.2); Potassium 4.2 mmol/L (3.5-5.1); Total Bilirubin 0.8 mg/dL (0.2-1.3); Total Protein 7.2 g/dL (6.3-8.2)
[2021-07-05 16:04] VITALS: BP 158/72; PULSE 70
== END 2021-07-05 16:18 | disposition home or self-care (01) ==
LOC: CATHCVL 06:45
PROVIDERS: ATTEND Internal Medicine Interventional Cardiology
DX: I25.10 Atherosclerotic heart disease of native coronary artery without angina pectoris (principal); Z20.822 Contact with and (suspected) exposure to COVID-19
CPT/HCPCS: 93454; 83880; 80074; 84443; 83735; 85025; 83036; 87635; C1894 ×2; C1769 ×2; J2250; J2001; Q9967; 80053; 80061

== ENCOUNTER 2021-07-12 06:47 | Outpatient (CLI) | payer MEDICARE ==
--- NOTE | 2021-07-12 12:08 | CT ---
EXAMINATION TYPE: CT TAVR Planning DATE OF EXAM: 07/12/2021 HISTORY: Pre Valve replacement CT DLP: 1070 mGycm Automated Exposure Control for Dose Reduction was Utilized. CONTRAST: CT scan of the chest, abdomen and pelvis is performed with IV Contrast, patient injected with 125 mL of Isovue 370. COMPARISON: CT chest 07/14/2020 TECHNIQUE: Helical imaging obtained through the chest, abdomen and pelvis during arterial phase yanni debi administration of radiographic contrast intravenously. FINDINGS: See report from [employer] regarding preprocedural planning CHEST: Lower Neck and Thyroid: No significant findings Lungs: There are mild interstitial and emphysematous changes Central Airway: No significant findings Pleura: No significant findings Pulmonary Arteries: No significant findings Heart and Pericardium: There are mitral annular calcifications present. Calcifications are present at the level of the aortic root and valve leaflets, there are coronary artery calcifications Lymph Nodes: There is a centrally calcified mediastinal nodes which are nonenlarged in the interval g ranulomatous disease Mediastinum & Esophagus: There is a hiatal hernia present. ABDOMEN/PELVIS: Please note arterial phase of the imaging limits detailed evaluation of the solid abdominal organs. Liver: Low-attenuation may be indicative of hepatic steatosis Spleen: No significant findings Kidneys: Right kidney is atrophic. There is a punctate calcification associated with the. Adrenal Glands: No significant findings Pancreas: No significant findings Gallbladder: No significant findings Bowel and Mesentery: No significant findings Lymph Nodes: No significant findings Urinary Bladder: No significant findings Pelvic Organs: No significant findings Other: No significant findings Other Lines/Tubes/Devices/Hardware: Aorta is atheromatous and shows areas of aneurysm and ectasia wit hin the distal thoracic aorta, abdominal aorta. Degenerative disc changes and facet arthropathy with spinal curvature are noted especially at the lower lumbar spine. Osteoarthritic change noted within t he hips. There is a posterior diaphragmatic hernia on the right than left containing fat IMPRESSION: Aortic aneurysmal disease, atrophic right kidney, additional findings above
== END 2021-07-12 13:49 | disposition home or self-care (01) ==
LOC: RADCTMAIN 06:47
PROVIDERS: ATTEND Thoracic Surgery (Cardiothoracic Vascular Surgery)
DX: I35.1 Nonrheumatic aortic (valve) insufficiency (principal); I71.4 Abdominal aortic aneurysm, without rupture; N26.1 Atrophy of kidney (terminal)
CPT/HCPCS: 87635; 71275; 74174; Q9967

== ENCOUNTER 2022-03-24 12:10 | Inpatient (IN) | payer MEDICARE ==
[2022-03-24] MEDS ORDERED: ASPIRIN 81 MG PO STA (12:40)
[2022-03-24] MEDS ORDERED: IPRATROPIUM-ALBUTEROL 3 ML NEB INHALATION STA (12:57)
--- NOTE | 2022-03-24 13:02 | ED ---
General Adult HPI - General Chief complaint: Shortness of Breath Stated complaint: Weakness, SOB Time Seen by Provider: 03/24/22 12:20 Source: patient, RN notes reviewed, old records reviewed Mode of arrival: ambulatory Limitations: no limitations - History of Present Illness Initial comments: Patient is an 86-year-old female with past medical history remarkable for aortic stenosis, CAD, prior smoker, hypertension, who is DNR/DNI presents emergency de partment complaining of worsening shortness breath over the last 1 week to 10 days. Patient has been having a productive cough over that period of time of greenish yellow mucus. Patient is also having increased weight gain over the last few weeks. Approximately by 7 pounds. This is suspicious for likely weight gain from fluid overload. He was pretreated with increased doses of her oral Lasix, however this is not improving and therefore was sent here to the department for further evaluation at this time. Denies any worsening lower extremity edema. Does endorse worsening orthopnea. Denies worsening PND. Denies any chest pain, abdominal pain, nausea, vomiting. His no other acute complaints at this time. Presents for further evaluation. Daughter presents with the patient, and she is the patient's medical decision maker.Patient was evaluated for TAVR, however she is not a candidate due to her age and medical conditions. - Related Data Home Medications Medication Instructions Recorded Confirmed Alendronate Sodium 70 mg PO MO 03/04/15 03/24/22 Aspirin 81 mg PO DAILY 03/04/15 03/24/22 Fish Oil/Dha/Epa [Fish Oil 1,200 1 cap PO DAILY 03/04/15 03/24/22 mg Fish Oil] amLODIPine [Norvasc] 5 mg PO DAILY 03/04/15 03/24/22 Atorvastatin [Lipitor] 80 mg PO DAILY 03/24/22 03/24/22 Calcium 1200mg/Vitamin D3 1000mcg 1 tab PO DAILY 03/24/22 03/24/22 Furosemide [Lasix] 10 mg PO DAILY 03/24/22 03/24/22 hydrALAZINE HCL [Apresoline] 10 mg PO BID 03/24/22 03/24/22 Allergies Allergy/AdvReac Type Severity Reaction Status Date / Time venom-honey bee Allergy Swelling Verified 03/24/22 13:09 [bee venom (honey bee)] Review of Systems ROS Statement: Those systems with pertinent positive or pertinent negative responses have been documented in the HPI. Review of Systems: CONST: Denies fever EYES: Denies blurry vision ENT: Denies nasal congestion C/V: Denies Chest pain RESP: Endorses shortness of breath GI: Denies abdominal pain : Denies dysuria SKIN: Denies rash. MSK: Denies joint pain. NEURO: Denies headache ROS Other: All systems not noted in ROS Statement are negative. Past Medical History Past Medical History: Coronary Artery Disease (CAD), CVA/TIA, Hyperlipidemia, Hypertension, Vascular Disorder Additional Past Medical History / Comment(s): recent hx of SOB, CVA X2, no residual effects, states following with Dr Dexter for some blockages in carotid arteries and legs History of Any Multi-Drug Resistant Organisms: None Reported Past Surgical History: Heart Catheterization, Orthopedic Surgery, Tubal Ligation Additional Past Surgical History / Comment(s): leora carpal tunnel, leora cataracts, HEAR [facility] 07/13/2020-TRIPLE VESSES DX Past Anesthesia/Blood Transfusion Reactions: No Reported Reaction Past Psychological History: No Psychological Hx Reported Smoking Status: Former smoker Past Alcohol Use History: Rare Past Drug Use History: None Reported - Past Family History Brother(s) Family Medical History: Cancer Sister(s) Family Medical History: Cancer General Exam - General Exam Comments Initial Comments: General: Appears in no acute distress. Mild respiratory distress. HEAD: Normal with no signs of head trauma. EYES: PERRLA, EOMI, conjunctiva normal, no discharge. ENT: Hearing grossly intact, normal oropharynx. RESPIRATORY: Clear breath sounds bilaterally. No wheezes, rales, or rhonchi. Hypoxic on room air ranging between 90% and 95%. Mild increased work of breathing. C/V: Bradycardic with a regular rhythm. S1 and S2 auscultated, no obvious lower extremity edema, peripheral pulses 2+ and intact throughout ABD: Abd is soft, nontender, nondistended EXT: Normal range of motion, no obvious deformity SKIN: No rashes or lesions observed on exposed skin. NEURO: Alert and oriented 4. No focal deficits. Limitations: no limitations Course Vital Signs 03/24/22 03/24/22 03/24/22 12:23 12:53 13:15 Temperature 97.7 F Pulse Rate 45 L 41 L 40 L Respiratory 20 24 Rate Blood Pressure 199/53 195/67 O2 Sat by Pulse 93 L 88 L Oximetry 03/24/22 13:25 Temperature Pulse Rate 41 L Respiratory 22 Rate Blood Pressure 195/67 O2 Sat by Pulse 94 L Oximetry Medical Decision Making - Medical Decision Making Based on the patient's presentation and physical exam, his possible she is experiencing a volume overload state but cannot rule out infectious etiology at this time either. She is a chronic smoker, we will see if pretreatments up with her breathing. Cardiac labs will be obtained as well as infectious labs. Patient was in agreement this plan. Vital signs are otherwise within normal limits. She does have a history of chronic bradycardia. Is not normally on oxygen at home. EKG shows chronic bradycardia.Chest x-ray was read as having no acute cardiopulmonary process, however I'm concerned for blunting in the bilateral costovertebral angles as well as pulmonary vascular congestion but does appear worse. Concerned for possible heart failure. Laboratory studies are remarkable for a Normocytic anemia with a hemoglobin of 11.3. Patient has CK D with BUN and creatinine appearing stable. Troponin is elevated to 0.317. BNP is elevated to 9500. Covid and flu negative. I did provide the patient with an aspirin already. Patient will be started on IV Lasix. Also start the patient on IV heparin for an NSTEMI. I discussed the findings with the patient as well as her daughter. There were in agreement with admission and cardiac evaluation. Patient is made DNR/DNI at the request of her power of business attorney, her daughter. Echo was ordered. I spoke with the admitting physician, Dr. Gallagher who was in agreement this plan. I also spoke with the cardiology and consulted them. - Lab Data Result diagrams: 03/24/22 12:58 03/24/22 12:58 Lab Results 03/24/22 03/24/22 03/24/22 Range/Units 12:58 12:58 12:58 WBC 6.7 (3.8-10.6) k/uL RBC 3.44 L (3.80-5.40) m/uL Hgb 11.3 L (11.4-16.0) gm/dL Hct 34.1 (34.0-46.0) % MCV 99.2 (80.0-100.0) fL MCH 33.0 (25.0-35.0) pg MCHC 33.2 (31.0-37.0) g/dL RDW 15.3 (11.5-15.5) % Plt Count 231 (150-450) k/uL MPV 8.3 Neutrophils % 82 % Lymphocytes % 10 % Monocytes % 6 % Eosinophils % 1 % Basophils % 1 % Neutrophils # 5.4 (1.3-7.7) k/uL Lymphocytes # 0.7 L (1.0-4.8) k/uL Monocytes # 0.4 (0-1.0) k/uL Eosinophils # 0.0 (0-0.7) k/uL Basophils # 0.0 (0-0.2) k/uL Hypochromasia Slight Macrocytosis Slight PT 11.0 (9.0-12.0) sec INR 1.0 (<1.2) APTT 22.6 (22.0-30.0) sec Sodium 135 L (137-145) mmol/L Potassium 4.1 (3.5-5.1) mmol/L Chloride 105 (98-107) mmol/L Carbon Dioxide 23 (22-30) mmol/L Anion Gap 7 mmol/L BUN 30 H (7-17) mg/dL Creatinine 1.55 H (0.52-1.04) mg/dL Est GFR (CKD-EPI)AfAm 34 (>60 ml/min/1.73 sqM) Est GFR (CKD-EPI)NonAf 30 (>60 ml/min/1.73 sqM) Glucose 123 H (74-99) mg/dL Calcium 8.9 (8.4-10.2) mg/dL Magnesium 2.0 (1.6-2.3) mg/dL Total Bilirubin 1.2 (0.2-1.3) mg/dL AST 34 (14-36) U/L ALT 43 H (4-34) U/L Alkaline Phosphatase 79 (38-126) U/L Troponin I (0.000-0.034) ng/mL NT-Pro-B Natriuret Pep pg/mL Total Protein 6.7 (6.3-8.2) g/dL Albumin 4.0 (3.5-5.0) g/dL Coronavirus (PCR) (Not Detectd) Influenza Type A RNA (Not Detectd) Influenza Type B (PCR) (Not Detectd) 03/24/22 03/24/22 03/24/22 Range/Units 12:58 12:58 12:58 WBC (3.8-10.6) k/uL RBC (3.80-5.40) m/uL Hgb (11.4-16.0) gm/dL Hct (34.0-46.0) % MCV (80.0-100.0) fL MCH (25.0-35.0) pg MCHC (31.0-37.0) g/dL RDW (11.5-15.5) % Plt Count (150-450) k/uL MPV Neutrophils % % Lymphocytes % % Monocytes % % Eosinophils % % Basophils % % Neutrophils # (1.3-7.7) k/uL Lymphocytes # (1.0-4.8) k/uL Monocytes # (0-1.0) k/uL Eosinophils # (0-0.7) k/uL Basophils # (0-0.2) k/uL Hypochromasia Macrocytosis PT (9.0-12.0) sec INR (<1.2) APTT (22.0-30.0) sec Sodium (137-145) mmol/L Potassium (3.5-5.1) mmol/L Chloride (98-107) mmol/L Carbon Dioxide (22-30) mmol/L Anion Gap mmol/L BUN (7-17) mg/dL Creatinine (0.52-1.04) mg/dL Est GFR (CKD-EPI)AfAm (>60 ml/min/1.73 sqM) Est GFR (CKD-EPI)NonAf (>60 ml/min/1.73 sqM) Glucose (74-99) mg/dL Calcium (8.4-10.2) mg/dL Magnesium (1.6-2.3) mg/dL Total Bilirubin (0.2-1.3) mg/dL AST (14-36) U/L ALT (4-34) U/L Alkaline Phosphatase (38-126) U/L Troponin I 0.317 H* (0.000-0.034) ng/mL NT-Pro-B Natriuret Pep 9500 pg/mL Total Protein (6.3-8.2) g/dL Albumin (3.5-5.0) g/dL Coronavirus (PCR) (Not Detectd) Influenza Type A RNA Not Detected (Not Detectd) Influenza Type B (PCR) Not Detected (Not Detectd) 03/24/22 Range/Units 12:58 WBC (3.8-10.6) k/uL RBC (3.80-5.40) m/uL Hgb (11.4-16.0) gm/dL Hct (34.0-46.0) % MCV (80.0-100.0) fL MCH (25.0-35.0) pg MCHC (31.0-37.0) g/dL RDW (11.5-15.5) % Plt Count (150-450) k/uL MPV Neutrophils % % Lymphocytes % % Monocytes % % Eosinophils % % Basophils % % Neutrophils # (1.3-7.7) k/uL Lymphocytes # (1.0-4.8) k/uL Monocytes # (0-1.0) k/uL Eosinophils # (0-0.7) k/uL Basophils # (0-0.2) k/uL Hypochromasia Macrocytosis PT (9.0-12.0) sec INR (<1.2) APTT (22.0-30.0) sec Sodium (137-145) mmol/L Potassium (3.5-5.1) mmol/L Chloride (98-107) mmol/L Carbon Dioxide (22-30) mmol/L Anion Gap mmol/L BUN (7-17) mg/dL Creatinine (0.52-1.04) mg/dL Est GFR (CKD-EPI)AfAm (>60 ml/min/1.73 sqM) Est GFR (CKD-EPI)NonAf (>60 ml/min/1.73 sqM) Glucose (74-99) mg/dL Calcium (8.4-10.2) mg/dL Magnesium (1.6-2.3) mg/dL Total Bilirubin (0.2-1.3) mg/dL AST (14-36) U/L ALT (4-34) U/L Alkaline Phosphatase (38-126) U/L Troponin I (0.000-0.034) ng/mL NT-Pro-B Natriuret Pep pg/mL Total Protein (6.3-8.2) g/dL Albumin (3.5-5.0) g/dL Coronavirus (PCR) Not Detected (Not Detectd) Influenza Type A RNA (Not Detectd) Influenza Type B (PCR) (Not Detectd) - EKG Data -: EKG Interpreted by Me EKG Comments: 12-lead Electrocardiogram Interpretation Note EKG was reviewed and interpreted by myself. 12-lead ECG performed at 1232 is interpreted by me as revealing supraventricular bradycardia at a rate of 42 beats per minute. Left axis deviation. QRS durations 130 ms, QTc is 426 ms.. There were no ST or T wave abnormalities to suggest myocardial ischemia or injury. R wave progression across the precordium was satisfactory. By my interpretation this EKG is non-diagnostic for acute ischemia. 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 Chronic bradycardic rhythm. Findings seen on prior EKGs. Critical Care Time Critical Care Time: Yes Total Critical Care Time: 35 Critical Care Time: Upon my evaluation, this patient had a high probability of imminent or life- threatening deterioration due to CHF, NSTEMI with heparin initiation, which required my direct attention, intervention, and personal management. I have personally provided 35 minutes of critical care time exclusive of time spent on separately billable procedures. Time includes review of laboratory data , radiology results, discussion with consultants, and monitoring for potential decompensation. Interventions were performed as documented in my note. Disposition Clinical Impression: Bradycardia, NSTEMI (non-ST elevated myocardial infarction), CHF (congestive heart failure), Aortic stenosis, Hypoxia Disposition: ADMITTED IP TO THIS HOSP Condition: Serious Time of Disposition: 14:13
--- NOTE | 2022-03-24 13:09 | XR ---
EXAMINATION TYPE: XR chest 2V DATE OF EXAM: 03/24/2022 COMPARISON: 07/14/2020 HISTORY: Shortness of breath TECHNIQUE: Frontal and lateral views of the chest are obtained. FINDINGS: Scattered senescent parenchymal changes noted. No evidence for infiltrate. No evidence for atelectasis. Chronic cardiomegaly with pulmonary venous congestion. No overt failure at this time. Mediastinal structures are stable and grossly unremarkable. No evidence for hilar prominence. Degenerative changes dorsal spine. IMPRESSION: 1. No evidence for acute pulmonary disease.
[2022-03-24 13:12] LABS: Basophils % (A) 1 %; Eosinophils % (A) 1 %; HCT 34.1 % (34.0-46.0); HGB 11.3 gm/dL (11.4-16.0); Hypochromasia Slight; Lymphocytes # (A) 0.7 k/uL (1.0-4.8); Lymphocytes % (A) 10 %; MCHC 33.2 g/dL (31.0-37.0); MCV 99.2 fL (80.0-100.0); Macrocytosis Slight; Mean Platelet Volume 8.3; Monocytes # (A) 0.4 k/uL (0-1.0); Monocytes % (A) 6 %; Neutrophils # (A) 5.4 k/uL (1.3-7.7); Neutrophils % (A) 82 %; Platelet Count 231 k/uL (150-450); RBC 3.44 m/uL (3.80-5.40); RDW 15.3 % (11.5-15.5); WBC 6.7 k/uL (3.8-10.6)
[2022-03-24 13:23] LABS: Calcium 8.9 mg/dL (8.4-10.2); Potassium 4.1 mmol/L (3.5-5.1); Total Bilirubin 1.2 mg/dL (0.2-1.3); Total Protein 6.7 g/dL (6.3-8.2)
[2022-03-24 13:28] LABS: Partial Thromboplastin Time 22.6 sec (22.0-30.0)
[2022-03-24] MEDS ORDERED: FUROSEMIDE 10 MG/ML 4 ML VIAL IV SCH (14:00)
[2022-03-24] MEDS ORDERED: NALOXONE 0.4 MG/ML 1 ML VIAL IV PRN (14:12)
[2022-03-24] MEDS ORDERED: hydrALAZINE HCL 10 MG TAB PO STA (14:16)
[2022-03-24] MEDS ORDERED: HEPARIN SODIUM 1,000 UN/ML (10ML VL) IV PRN (14:17)
[2022-03-24] MEDS ORDERED: HEPARIN SODIUM 1,000 UN/ML (10ML VL) IV ONE (14:17)
[2022-03-24] MEDS: HEPARIN SOD,PORK IN 0.45% NACL 25,000 UNIT in 0.45% NACL 1 250ML.BAG IV SCH (14:52)
[2022-03-24] MEDS: FUROSEMIDE 10 MG/ML 4 ML VIAL IV SCH ×2 (17:51→21:43)
[2022-03-24] MEDS: hydrALAZINE HCL 10 MG TAB PO SCH (21:43)
[2022-03-25 07:52] LABS: Basophils % (A) 0 %; Eosinophils # (A) 0.1 k/uL (0-0.7); Eosinophils % (A) 2 %; HCT 36.8 % (34.0-46.0); HGB 11.8 gm/dL (11.4-16.0); Hypochromasia Slight; Lymphocytes # (A) 1.1 k/uL (1.0-4.8); Lymphocytes % (A) 14 %; MCHC 32.1 g/dL (31.0-37.0); MCV 99.8 fL (80.0-100.0); Macrocytosis Slight; Mean Platelet Volume 8.1; Monocytes # (A) 0.5 k/uL (0-1.0); Monocytes % (A) 7 %; Neutrophils # (A) 5.7 k/uL (1.3-7.7); Neutrophils % (A) 75 %; Platelet Count 258 k/uL (150-450); RBC 3.69 m/uL (3.80-5.40); RDW 15.3 % (11.5-15.5); WBC 7.5 k/uL (3.8-10.6)
[2022-03-25 08:04] LABS: Partial Thromboplastin Time 32.8 sec (22.0-30.0); Prothrombin Time 11.1 sec (9.0-12.0)
[2022-03-25 08:10] LABS: Calcium 8.6 mg/dL (8.4-10.2); Potassium 3.6 mmol/L (3.5-5.1)
[2022-03-25] MEDS: amLODIPine 5 MG TAB PO SCH (09:59)
[2022-03-25] MEDS: ATORVASTATIN 80 MG TAB PO SCH (09:59)
[2022-03-25] MEDS: hydrALAZINE HCL 10 MG TAB PO SCH (09:59)
[2022-03-25] MEDS: ASPIRIN 81 MG PO SCH (09:59)
[2022-03-25] MEDS: FUROSEMIDE 10 MG/ML 4 ML VIAL IV SCH ×3 (09:59→21:03)
[2022-03-25] MEDS ORDERED: METOPROLOL SUCCINATE (ER) 25 MG TAB.ER.24H PO SCH (11:45)
[2022-03-25] MEDS: LOSARTAN 25 MG TAB PO SCH (12:09)
--- NOTE | 2022-03-25 13:31 | CA ---
Transthoracic Echo Report Name: Maryjo Núñez Age: 86 Gender: F : 1935 Exam Date: 03/25/2022 08:10 Exam Location: [facility] Ht (in): 62 Wt (lb): 131 Ordering Physician: Jonathan Crawley MD Attending/Referring Phys: Consulting Practice Director Deysi Bowie RDCS Procedure CPT: Indications: heart failure, elevated troponin Cardiac Hx: Technical Quality: Fair Contrast 1: Total Dose (mL): Contrast 2: Total Dose (mL): MEASUREMENTS (Male / Female) Normal Values 2D ECHO LV Diastolic Diameter PLAX 4.3 cm 4.2 - 5.9 / 3.9 - 5.3 cm LV Systolic Diameter PLAX 2.9 cm IVS Diastolic Thickness 1.3 cm 0.6 - 1.0 / 0.6 - 0.9 cm LVPW Diastolic Thickness 1.5 cm 0.6 - 1.0 / 0.6 - 0.9 cm LV Relative Wall Thickness 0.7 RV Internal Dim ED PLAX 2.7 cm LA Volume 93.5 cm??? 18 - 58 / 22 - 52 cm??? M-MODE Aortic Root Diameter MM 3.2 cm LA Systolic Diameter MM 5.3 cm LA Ao Ratio MM 1.7 DOPPLER AV Peak Velocity 408.1 cm/s AV Peak Gradient 66.6 mmHg AV Mean Velocity 261.7 cm/s AV Mean Gradient 32.0 mmHg AV Velocity Time Integral 90.6 cm AI Peak Velocity 488.4 cm/s AI Peak Gradient 95.4 mmHg AI Pressure Half Time 369.4 ms LVOT Peak Velocity 94.7 cm/s LVOT Peak Gradient 3.6 mmHg MV Peak Velocity 153.1 cm/s MV Peak Gradient 9.4 mmHg MV Mean Velocity 108.5 cm/s MV Mean Gradient 5.0 mmHg MV Velocity Time Integral 52.0 cm MV Area PHT 2.7 cm??? Mitral E Point Velocity 126.7 cm/s Mitral A Point Velocity 157.4 cm/s Mitral E to A Ratio 0.8 MV Deceleration Time 282.5 ms MV E' Velocity 3.1 cm/s Mitral E to MV E' Ratio 40.5 TR Peak Velocity 326.9 cm/s TR Peak Gradient 42.7 mmHg Right Atrial Pressure 20.0 mmHg Pulmonary Artery Systolic Pressu 62.7 mmHg Right Ventricular Systolic Press 62.7 mmHg FINDINGS Left Ventricle Moderately increased left ventricular wall thickness. No obvious regional wall motion abnormalities. Left ventricular ejection fraction is estimated at 50-55 %. Right Ventricle Normal right ventricular size and function. Severe pulmonary hypertension. Right Atrium Normal right atrial size. Left Atrium Severely increased left atrial volume. Mitral Valve Severe mitral annular calcification. Mild mitral stenosis. Moderate mitral regurgitation. Aortic Valve Moderate aortic regurgitation. [id number] aortic stenosis with a peak gradient of 73 mmHg and a mean gradient of 35 mmHg. Tricuspid Valve [id number] tricuspid regurgitation. Pulmonic Valve Mild pulmonic regurgitation. Pericardium No pericardial effusion. Aorta Normal size aortic root and proximal ascending aorta. CONCLUSIONS Concentric left ventricular hypertrophy with normal LV systolic function Severe aortic stenosis Severe mitral calcification with moderate mitral regurgitation Previewed by: Dr. Jovan Rivers MD (Electronically Signed) Final Date: 25 March 2022 13:30
[2022-03-25] MEDS ORDERED: Potassium Replacement Protocol 1 EACH MISC MISCELLANE PRN (14:41)
[2022-03-25] MEDS ORDERED: POTASSIUM CHLORIDE ER 20 MEQ TAB.ER PO SCH (15:00)
--- NOTE | 2022-03-25 17:16 | P.HPIM ---
History of Present Illness H&P Date: 03/25/22 Maryjo Núñez, is an 86-year-old female who presented to [facility] emergency room with a chief complaint of worsening shortness of breath over the last 10 days, patient was also complaining of cough with greenish sputum production, she was treated with increased dose of Lasix as outpatient however her symptoms continued to worsen and she decided to come to emergency room, patient also stated that she had about 7 pounds weight gain over the last week. She was evaluated in the emergency room vital examination on presentation revealed a temperature of 97.7 pulse 45 respiration 20 blood pressure 199/53 pulse ox 88% on room air Laboratory data revealed a white blood count of 6.7 hemoglobin 11.3 platelet count 231 sodium 135 potassium 4.1 chloride 105 CO2 23 BUN 30 creatinine 1.55 troponin level 0.3 BNP 9500 COVID-19 PCR was negative Testing in the emergency room revealed EKG done in the emergency room revealed supraventricular bradycardia with left anterior fascicular block, chest x-ray revealed no evidence for acute pulmonary disease, patient was started on IV heparin. Patient was admitted to medical floor for further evaluation and treatment 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 Past Anesthesia/Blood Transfusion Reactions: No Reported Reaction Past Psychological History: No Psychological Hx Reported Smoking Status: Former smoker Past Alcohol Use History: Rare Additional Past Alcohol Use History / Comment(s): quit smoking approx 1999, smoked <1ppd Past Drug Use History: None Reported - Past Family History Brother(s) Family Medical History: Cancer Sister(s) Family Medical History: Cancer Medications and Allergies Home Medications Medication Instructions Recorded Confirmed Type Alendronate Sodium 70 mg PO MO 03/04/15 03/24/22 History Aspirin 81 mg PO DAILY 03/04/15 03/24/22 History Fish Oil/Dha/Epa [Fish Oil 1,200 1 cap PO DAILY 03/04/15 03/24/22 History mg Fish Oil] amLODIPine [Norvasc] 5 mg PO DAILY 03/04/15 03/24/22 History Atorvastatin [Lipitor] 80 mg PO DAILY 03/24/22 03/24/22 History Calcium 1200mg/Vitamin D3 1000mcg 1 tab PO DAILY 03/24/22 03/24/22 History Furosemide [Lasix] 10 mg PO DAILY 03/24/22 03/24/22 History hydrALAZINE HCL [Apresoline] 10 mg PO BID 03/24/22 03/24/22 History Allergies Allergy/AdvReac Type Severity Reaction Status Date / Time venom-honey bee Allergy Swelling Verified 03/24/22 13:09 [bee venom (honey bee)] Physical Exam Vitals: Vital Signs Temp Pulse Pulse Pulse Resp BP BP 03/25/22 04:40 98.5 F 73 22 158/68 03/24/22 23:10 69 20 174/63 03/24/22 22:30 172/62 03/24/22 20:45 98.1 F 79 24 196/64 03/24/22 18:32 98.2 F 46 L 24 224/67 03/24/22 17:54 98.1 F 46 L 24 224/67 03/24/22 16:42 169/95 03/24/22 16:40 44 L 20 03/24/22 13:25 41 L 22 195/67 03/24/22 13:15 40 L 03/24/22 12:53 41 L 24 195/67 03/24/22 12:23 97.7 F 45 L 20 199/53 Pulse Ox 03/25/22 04:40 94 L 03/24/22 23:10 97 03/24/22 22:30 03/24/22 20:45 95 03/24/22 18:32 97 03/24/22 17:54 97 03/24/22 16:42 03/24/22 16:40 95 03/24/22 13:25 94 L 03/24/22 13:15 03/24/22 12:53 88 L 03/24/22 12:23 93 L Intake and Output 03/24/22 03/25/22 03/25/22 22:59 06:59 14:59 Intake Total 43.154 105.243 Output Total 1300 450 200 Balance -1256.846 -450 -94.757 Intake: Intake, IV Titration 43.154 105.243 Amount Heparin Sod,Pork in 0.45% 43.154 105.243 NaCl 25,000 unit In 0.45 % NaCl 1 250ml.bag @ 12 UNITS/KG/HR 7.729 mls/hr IV .Q24H [facility] Rx#: [id number] Output: Urine 1300 450 200 Other: Voiding Method Bedside Commode Bedside Commode Weight 64.41 kg 59.7 kg In general patient is alert and oriented x 3 in no distress HEENT head normocephalic and atraumatic Neck is supple no JVD no goiter no lymphadenopathy no carotid bruit Chest examination reveals a scattered crackles in bases no wheezing Cardiac exam reveals regular heart sounds S1 and S2 no gallops no murmurs Abdomen is soft nontender no organomegaly with normal bowel sounds Extremity exam reveals no edema no cyanosis or clubbing Neurological examination reveals no gross focal deficits Results CBC & Chem 7: 03/25/22 07:11 03/25/22 07:11 Labs: Abnormal Lab Results - Last 24 Hours (Table) 03/24/22 03/24/22 03/24/22 Range/Units 12:58 12:58 12:58 RBC 3.44 L (3.80-5.40) m/uL Hgb 11.3 L (11.4-16.0) gm/dL Lymphocytes # 0.7 L (1.0-4.8) k/uL APTT (22.0-30.0) sec Sodium 135 L (137-145) mmol/L BUN 30 H (7-17) mg/dL Creatinine 1.55 H (0.52-1.04) mg/dL Glucose 123 H (74-99) mg/dL ALT 43 H (4-34) U/L Troponin I 0.317 H* (0.000-0.034) ng/mL 03/24/22 03/24/22 03/24/22 Range/Units 16:45 19:39 19:39 RBC (3.80-5.40) m/uL Hgb (11.4-16.0) gm/dL Lymphocytes # (1.0-4.8) k/uL APTT 42.7 H (22.0-30.0) sec Sodium (137-145) mmol/L BUN (7-17) mg/dL Creatinine (0.52-1.04) mg/dL Glucose (74-99) mg/dL ALT (4-34) U/L Troponin I 0.387 H* 0.340 H* (0.000-0.034) ng/mL 03/25/22 03/25/22 03/25/22 Range/Units 07:11 07:11 07:11 RBC 3.69 L (3.80-5.40) m/uL Hgb (11.4-16.0) gm/dL Lymphocytes # (1.0-4.8) k/uL APTT 32.8 H (22.0-30.0) sec Sodium (137-145) mmol/L BUN 28 H (7-17) mg/dL Creatinine 1.46 H (0.52-1.04) mg/dL Glucose 109 H (74-99) mg/dL ALT (4-34) U/L Troponin I (0.000-0.034) ng/mL Thrombosis Risk Factor Assmnt - Choose All That Apply Each Factor Represents 1 point: Heart failure (<1month), Swollen legs (current) Each Risk Factor Represents 3 Points: Age 75 years or older Thrombosis Risk Factor Assessment Total Risk Factor Score: 5 Thrombosis Risk Factor Assessment Level: High Risk Assessment and Plan Plan: Acute non-ST elevation myocardial infarction Acute exacerbation of congestive heart failure Underlying history of hypertension Underlying history of hyperlipidemia Underlying history of coronary artery disease, last cardiac catheterization in 2019 Underlying history of CVA 2 Underlying history of peripheral vascular disease followed by Dr. Dexter Previous history of smoking At this time patient is admitted to telemetry floor, she was started on IV heparin in the emergency room she is also on IV Lasix Echocardiogram ordered cardiology consultation requested Home medications reviewed and reordered. For DVT prophylaxis patient is on IV heparin at this time for GI prophylaxis Will add Protonix Will follow closely prognosis is guarded
--- NOTE | 2022-03-25 17:45 | CONS ---
CONSULTATION CHIEF COMPLAINT: Shortness of breath. 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 She has been getting progressively more short of breath for the last 7 to 10 days. She also has a productive cough, has gained weight and has had bilateral leg edema. She was found to be in congestive heart failure exacerbation and was treated with diuretics, with significant improvement in her symptoms at the time of my evaluation. She has aortic stenosis and coronary artery disease and was thought not to be a candidate for aortic valve replacement. EKG shows sinus bradycardia with secondary ST-T wave changes. 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 The patient has bradycardia. I am going to stop the Toprol. Will start her on an SYLVIA inhibitor. She is on IV heparin, which I am going to continue along with aspirin and Lipitor. Troponins are mildly elevated. BNP is elevated. Her BUN is 28 and creatinine is 1.4. An EKG done in 2019 revealed a regular sinus rhythm with ST-T wave changes. PAST MEDICAL HISTORY: Significant for coronary artery disease, aortic stenosis and hypertension. MEDICATIONS: As charted. ALLERGIES: NONE. FAMILY HISTORY: Negative for premature coronary artery disease. SOCIAL HISTORY: Negative for smoking, EtOH abuse or drug abuse. REVIEW OF SYSTEMS: HEENT is unremarkable. CARDIAC: As described above. RESPIRATORY: As described above. GI: Negative. GENITOURINARY: Negative. ALLERGY/IMMUNOLOGY: Negative. SKIN: Negative. MUSCULOSKELETAL: Significant for arthritis. PSYCHOSOCIAL: Negative. DERMATOLOGY: Negative. CONSTITUTIONAL: Negative. ONCOLOGICAL: Negative. 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 PHYSICAL EXAMINATION: Comfortable at rest. Heart rate is 70 beats per minute. Blood pressure is 150/60, respiratory rate 18. O2 saturation is 94%. There is no jugular venous distention. Carotid upstroke is diminished. There is no bruit. Chest exam reveals diminished air entry at the bases with crackles. Heart exam reveals first and second heart sounds, ejection systolic murmur in the aortic area. Abdomen is soft. Examination of extremities reveals mild edema. Peripheral pulses are felt. ASSESSMENT: 1. Acute-onset congestive heart failure. 2. Coronary artery disease. 3. Aortic stenosis. 4. Bradycardia. PLAN: We will not give her any beta blockers. Continue with the IV Lasix. I will leave her on IV heparin for another day and will decide on further course of action tomorrow. MMODL / IJN: [id number] /
[2022-03-25] MEDS: HEPARIN SOD,PORK IN 0.45% NACL 25,000 UNIT in 0.45% NACL 1 250ML.BAG IV SCH ×2 (18:44→20:39)
[2022-03-26] MEDS: PANTOPRAZOLE 40 MG TABLET PO SCH (07:06)
[2022-03-26 07:20] LABS: Basophils % (A) 1 %; Eosinophils # (A) 0.3 k/uL (0-0.7); Eosinophils % (A) 4 %; HGB 12.5 gm/dL (11.4-16.0); Hypochromasia Slight; Lymphocytes # (A) 1.4 k/uL (1.0-4.8); Lymphocytes % (A) 18 %; MCH 31.2 pg (25.0-35.0); MCHC 31.4 g/dL (31.0-37.0); MCV 99.4 fL (80.0-100.0); Macrocytosis Slight; Monocytes # (A) 0.7 k/uL (0-1.0); Monocytes % (A) 8 %; Neutrophils # (A) 5.4 k/uL (1.3-7.7); Neutrophils % (A) 68 %; Platelet Count 270 k/uL (150-450); RBC 4.02 m/uL (3.80-5.40); RDW 14.8 % (11.5-15.5)
--- NOTE | 2022-03-26 08:09 | P.PN ---
Subjective Progress Note Date: 03/26/22 Maryjo Núñez, is an 86-year-old female who presented to [facility] emergency room with a chief complaint of worsening shortness of breath over the last 10 days, patient was also complaining of cough with greenish sputum production, she was treated with increased dose of Lasix as outpatient however her symptoms continued to worsen and she decided to come to emergency room, patient also stated that she had about 7 pounds weight gain over the last week. She was evaluated in the emergency room vital examination on presentation revealed a temperature of 97.7 pulse 45 respiration 20 blood pressure 199/53 pulse ox 88% on room air Laboratory data revealed a white blood count of 6.7 hemoglobin 11.3 platelet count 231 sodium 135 potassium 4.1 chloride 105 CO2 23 BUN 30 creatinine 1.55 troponin level 0.3 BNP 9500 COVID-19 PCR was negative Testing in the emergency room revealed EKG done in the emergency room revealed supraventricular bradycardia with left anterior fascicular block, chest x-ray revealed no evidence for acute pulmonary disease, patient was started on IV heparin. Patient was admitted to medical floor for further evaluation and treatment On 03/26/2022 patient was seen and examined on the telemetry floor she is alert and oriented 3 in no apparent distress, she reports some improvement in her shortness of breath since admission otherwise she denies any complaints there is no fever or chills no headache or dizziness no chest pain no palpitation no cough no nausea or vomiting no abdominal pain no diarrhea no blood in the stools no burning with urination no frequency or urgency and no hematuria. There is no weakness or numbness in any of the extremities there is no change in vision speech or gait. Objective - Vital Signs Vital signs: Vital Signs Temp 98.2 F 03/26/22 04:00 Pulse 64 03/26/22 04:00 Resp 20 03/26/22 04:00 BP 146/66 03/26/22 04:00 Pulse Ox 96 03/26/22 04:00 FiO2 Intake & Output 03/25/22 03/26/22 03/26/22 18:59 06:59 18:59 Intake Total 313.243 101.603 Output Total 700 1050 Balance -386.757 -948.397 Weight 60.7 kg Intake: IV 90 Heparin Sod,Pork in 0.45% 90 NaCl 25,000 unit In 0.45 % NaCl 1 250ml.bag @ 12 UNITS/KG/HR 7.729 mls/hr IV .Q24H ALEX Rx#: [id number] Intake, IV Titration 105.243 101.603 Amount Heparin Sod,Pork in 0.45% 105.243 101.603 NaCl 25,000 unit In 0.45 % NaCl 1 250ml.bag @ 12 UNITS/KG/HR 7.729 mls/hr IV .Q24H ALEX Rx#: [id number] Oral 118 Output: Urine 700 1050 Other: Voiding Method Bedside Commode Bedside Commode - Exam In general patient is alert and oriented x 3 in no distress HEENT head normocephalic and atraumatic Neck is supple no JVD no goiter no lymphadenopathy no carotid bruit Chest examination reveals a scattered crackles in bases no wheezing Cardiac exam reveals regular heart sounds S1 and S2 no gallops no murmurs Abdomen is soft nontender no organomegaly with normal bowel sounds Extremity exam reveals no edema no cyanosis or clubbing Neurological examination reveals no gross focal deficits - Labs CBC & Chem 7: 03/26/22 07:07 03/25/22 07:11 Labs: Abnormal Lab Results - Last 24 Hours (Table) 03/25/22 03/25/22 03/25/22 Range/Units 07:11 07:11 07:11 RBC 3.69 L (3.80-5.40) m/uL APTT 32.8 H (22.0-30.0) sec BUN 28 H (7-17) mg/dL Creatinine 1.46 H (0.52-1.04) mg/dL Glucose 109 H (74-99) mg/dL 03/25/22 Range/Units 15:43 RBC (3.80-5.40) m/uL APTT 54.3 H (22.0-30.0) sec BUN (7-17) mg/dL Creatinine (0.52-1.04) mg/dL Glucose (74-99) mg/dL Assessment and Plan Plan: Acute non-ST elevation myocardial infarction Acute exacerbation of congestive heart failure Underlying history of hypertension Underlying history of hyperlipidemia Underlying history of coronary artery disease, last cardiac catheterization in 2019 Underlying history of CVA 2 Underlying history of peripheral vascular disease followed by Dr. Isacc Previous history of smoking At this time patient is admitted to telemetry floor, she was started on IV heparin in the emergency room she is also on IV Lasix Echocardiogram ordered cardiology consultation requested Home medications reviewed and reordered. For DVT prophylaxis patient is on IV heparin at this time for GI prophylaxis Will add Protonix Will follow closely prognosis is guarded
[2022-03-26 08:22] LABS: Albumin 3.7 g/dL (3.5-5.0); Calcium 7.9 mg/dL (8.4-10.2); Potassium 4.3 mmol/L (3.5-5.1); Total Bilirubin 1.2 mg/dL (0.2-1.3); Total Protein 6.4 g/dL (6.3-8.2)
[2022-03-26] MEDS: amLODIPine 5 MG TAB PO SCH (08:42)
[2022-03-26] MEDS: ASPIRIN 81 MG PO SCH (08:42)
[2022-03-26] MEDS: ATORVASTATIN 80 MG TAB PO SCH (08:43)
[2022-03-26] MEDS: FUROSEMIDE 10 MG/ML 4 ML VIAL IV SCH ×3 (08:43→21:13)
[2022-03-26] MEDS: LOSARTAN 25 MG TAB PO SCH (08:43)
[2022-03-26] MEDS ORDERED: amLODIPine 5 MG TAB PO STA (09:44)
[2022-03-26] MEDS: NITROGLYCERIN OINT 1 INCH/GM PACKET TOPICAL SCH ×2 (11:45→17:26)
--- NOTE | 2022-03-26 13:58 | PN ---
PROGRESS NOTE Maryjo is an 86-year-old lady with multivessel coronary artery disease on medical therapy, who presented to hospital with acute exacerbation of congestive heart failure. She had been treated with intravenous diuretics with significant improvement in symptoms. I treated her with IV heparin for non ST segment elevation TN. This morning she is doing well and is free of cardiac symptoms. Her leg edema has resolved. Shortness of breath has improved. Chest pain has resolved. EXAM: Heart rate is 70 beats per minute. Blood pressure is 150/64, respiratory rate is 18. Chest exam reveals good air entry bilaterally. Heart exam reveals first and second heart sounds and a systolic murmur at the apex. Abdomen: Soft. Exam of extremities did not reveal any edema. Peripheral pulses are felt. Labs show that the BUN is 31, creatinine is 1.4. Hemoglobin is 12.5, platelet count is 270. ASSESSMENT: 1. Acute non-ST segment elevation myocardial infarction. 2. Acute exacerbation of chronic congestive heart failure. PLAN: I will continue aspirin, Lipitor, increase the dose of Norvasc 10 mg daily and continue the Cozaar that she is on. We can switch her to p.o. Lasix tomorrow and hopefully home. MMODL / IJN: [id number] /
[2022-03-26] MEDS: HEPARIN SODIUM,PORCINE/PF 5,000 UNIT/0.5 ML SYRINGE SQ SCH (17:26)
[2022-03-27] MEDS: HEPARIN SODIUM,PORCINE/PF 5,000 UNIT/0.5 ML SYRINGE SQ SCH ×4 (00:08→22:59)
[2022-03-27] MEDS: NITROGLYCERIN OINT 1 INCH/GM PACKET TOPICAL SCH ×2 (00:08→07:03)
[2022-03-27] MEDS: PANTOPRAZOLE 40 MG TABLET PO SCH (07:03)
[2022-03-27 07:44] LABS: Basophils % (A) 0 %; Eosinophils # (A) 0.2 k/uL (0-0.7); Eosinophils % (A) 4 %; HCT 36.6 % (34.0-46.0); HGB 11.5 gm/dL (11.4-16.0); Hypochromasia Slight; Lymphocytes # (A) 0.9 k/uL (1.0-4.8); Lymphocytes % (A) 16 %; MCH 31.4 pg (25.0-35.0); MCHC 31.5 g/dL (31.0-37.0); MCV 99.6 fL (80.0-100.0); Macrocytosis Slight; Mean Platelet Volume 7.8; Monocytes # (A) 0.5 k/uL (0-1.0); Monocytes % (A) 9 %; Neutrophils # (A) 3.6 k/uL (1.3-7.7); Neutrophils % (A) 68 %; Platelet Count 265 k/uL (150-450); RBC 3.67 m/uL (3.80-5.40); RDW 14.8 % (11.5-15.5); WBC 5.2 k/uL (3.8-10.6)
[2022-03-27 07:50] LABS: Albumin 3.2 g/dL (3.5-5.0); Calcium 7.7 mg/dL (8.4-10.2); Potassium 4.2 mmol/L (3.5-5.1); Total Bilirubin 0.8 mg/dL (0.2-1.3); Total Protein 5.7 g/dL (6.3-8.2)
[2022-03-27] MEDS: amLODIPine 10 MG TAB PO SCH (09:19)
[2022-03-27] MEDS: ATORVASTATIN 80 MG TAB PO SCH (09:19)
[2022-03-27] MEDS: ASPIRIN 81 MG PO SCH (09:19)
[2022-03-27] MEDS: FUROSEMIDE 10 MG/ML 4 ML VIAL IV SCH (09:19)
[2022-03-27] MEDS: LOSARTAN 25 MG TAB PO SCH (09:19)
--- NOTE | 2022-03-27 10:18 | P.PN ---
Subjective This is a 86 year old female with past medical history of coronary artery disease, aortic stenosis, aortic regurgitation, dyslipidemia. She follows in the office with Dr. Escamilla. We are following patient for congestive heart failure and NSTEMI. Patient presents with worsening shortness of breath, LE edema, weight gain. Patient started on IV Lasix. EKG showed sinus bradycardia with secondary ST-T wave changes, she was started on IV heparin drip and currently being treated medically for her NSTEMI. Echocardiogram revealed EF of 5055 %, moderate severe aortic stenosis with a peak/mean gradient of 73 mmHg/35 mmHg, moderate aortic regurgitation, mild to moderate tricuspid regurgitation, moderate mitral regurgitation, severe pulmonary hypertension RVSP of 62 mmHg Patient seen and examined at bedside, no acute distress. Her breathing has im proved. She denies any chest pain. Patient with -2182mL fluid balance for the past 24 hours. Telemetry reviewed patient in sinus mechanism with heart rates 5560s Meds: IV Lasix 40 mg TID, aspirin 81 mg daily, amlodipine 10 mg daily, losartan 25 mg daily, Nitropaste Labs: Sodium 136, potassium 4.2, BUN 35, serum creatinine 1.5 GENERAL: Well-appearing, well-nourished and in no acute distress. NECK: Supple without JVD LUNGS: Breath sounds diminished bilateral bases to auscultation bilaterally. Respiration equal and unlabored. No wheezes, rales or rhonchi. HEART: Regular rate and rhythm, No rubs or gallops. S1 and S2 heard.Systolic ejection murmur at right sternal border and apex noted. EXTREMITIES: Normal range of motion, no edema. No clubbing or cyanosis. Peripheral pulses intact. ASSESSMENT NSTEMI Acute on chronic heart failure with preserved ejection fraction Moderate to severe aortic stenosis Moderate mitral regurgitation Moderate aortic regurgitation Pulmonary hypertension Coronary artery disease Dyslipidemia PLAN Discontinue IV Lasix, transitioned to PO Lasix Discontinue nitro paste Start imdur 30mg daily Continue Losartan and amlodipine From a cardiology perspective, patient is stable to be discharged when cleared by primary Follow up outpatient with Dr. Escamilla. Nurse Practitioner note has been reviewed, I agree with a documented findings and plan of care. Patient was seen and examined. Objective - Vital Signs Vital signs: Vital Signs Temp 98.2 F 03/27/22 04:30 Pulse 57 L 03/27/22 04:30 Resp 20 03/27/22 04:30 BP 163/66 03/27/22 07:02 Pulse Ox 95 03/27/22 04:30 FiO2 Intake & Output 03/26/22 03/27/22 03/27/22 18:59 06:59 18:59 Intake Total 118 Output Total 800 1500 300 Balance -287 -3444 -300 Weight 61.3 kg 60.5 kg Intake: Oral 118 Output: Urine 800 1500 300 Other: Voiding Method Bedside Commode Bedside Commode # Voids 2 # Bowel Movements 1 - Labs CBC & Chem 7: 03/27/22 06:59 03/27/22 06:59 Labs: Abnormal Lab Results - Last 24 Hours (Table) 03/26/22 03/27/22 03/27/22 Range/Units 07:07 06:59 06:59 RBC 3.67 L (3.80-5.40) m/uL Lymphocytes # 0.9 L (1.0-4.8) k/uL Sodium 136 L (137-145) mmol/L BUN 31 H 35 H (7-17) mg/dL Creatinine 1.49 H 1.50 H (0.52-1.04) mg/dL Glucose 110 H 105 H (74-99) mg/dL Calcium 7.9 L 7.7 L (8.4-10.2) mg/dL AST 60 H (14-36) U/L ALT 36 H (4-34) U/L Total Protein 5.7 L (6.3-8.2) g/dL Albumin 3.2 L (3.5-5.0) g/dL
[2022-03-27] MEDS: ISOSORBIDE MONONITRATE ER 30 MG TAB.ER.24H PO SCH (10:58)
[2022-03-27] MEDS ORDERED: NON FORMULARY DRUG (Alendronate Sodium [Alendronate Sodium] 70 MG Tablet) PO SCH (14:14)
[2022-03-27] MEDS: FUROSEMIDE 20 MG TAB PO SCH (16:18)
--- NOTE | 2022-03-27 19:10 | P.PN ---
Subjective Progress Note Date: 03/27/22 Maryjo Núñez, is an 86-year-old female who presented to [facility] emergency room with a chief complaint of worsening shortness of breath over the last 10 days, patient was also complaining of cough with greenish sputum production, she was treated with increased dose of Lasix as outpatient however her symptoms continued to worsen and she decided to come to emergency room, patient also stated that she had about 7 pounds weight gain over the last week. She was evaluated in the emergency room vital examination on presentation revealed a temperature of 97.7 pulse 45 respiration 20 blood pressure 199/53 pulse ox 88% on room air Laboratory data revealed a white blood count of 6.7 hemoglobin 11.3 platelet count 231 sodium 135 potassium 4.1 chloride 105 CO2 23 BUN 30 creatinine 1.55 troponin level 0.3 BNP 9500 COVID-19 PCR was negative Testing in the emergency room revealed EKG done in the emergency room revealed supraventricular bradycardia with left anterior fascicular block, chest x-ray revealed no evidence for acute pulmonary disease, patient was started on IV heparin. Patient was admitted to medical floor for further evaluation and treatment On 03/26/2022 patient was seen and examined on the telemetry floor she is alert and oriented 3 in no apparent distress, she reports some improvement in her shortness of breath since admission otherwise she denies any complaints there is no fever or chills no headache or dizziness no chest pain no palpitation no cough no nausea or vomiting no abdominal pain no diarrhea no blood in the stools no burning with urination no frequency or urgency and no hematuria. There is no weakness or numbness in any of the extremities there is no change in vision speech or gait. On 03/27/2022 patient was seen and examined on the telemetry floor she is alert and oriented 3 in no distress she improved significantly, she was evaluated by cardiology this morning and was cleared for discharge, however subsequently patient had changes on her telemetry EKG revealed evidence of junctional rhythm which is new for her, cardiology were notified, discharge was canceled patient will be monitored for 1 more day on telemetry floor Objective - Vital Signs Vital signs: Vital Signs Temp 97.4 F L 03/27/22 11:30 Pulse 59 L 03/27/22 11:30 Resp 18 03/27/22 11:30 BP 110/85 03/27/22 11:30 Pulse Ox 96 03/27/22 11:30 FiO2 Intake & Output 03/26/22 03/27/22 03/27/22 18:59 06:59 18:59 Intake Total 118 125 Output Total 800 1500 300 Balance -197 -8605 -175 Weight 61.3 kg 60.5 kg Intake: Oral 118 125 Output: Urine 800 1500 300 Other: Voiding Method Bedside Commode Bedside Commode Bedside Commode # Voids 2 1 # Bowel Movements 1 - Exam In general patient is alert and oriented x 3 in no distress HEENT head normocephalic and atraumatic Neck is supple no JVD no goiter no lymphadenopathy no carotid bruit Chest examination reveals a scattered crackles in bases no wheezing Cardiac exam reveals regular heart sounds S1 and S2 no gallops no murmurs Abdomen is soft nontender no organomegaly with normal bowel sounds Extremity exam reveals no edema no cyanosis or clubbing Neurological examination reveals no gross focal deficits - Labs CBC & Chem 7: 03/27/22 06:59 03/27/22 06:59 Labs: Abnormal Lab Results - Last 24 Hours (Table) 03/27/22 03/27/22 Range/Units 06:59 06:59 RBC 3.67 L (3.80-5.40) m/uL Lymphocytes # 0.9 L (1.0-4.8) k/uL Sodium 136 L (137-145) mmol/L BUN 35 H (7-17) mg/dL Creatinine 1.50 H (0.52-1.04) mg/dL Glucose 105 H (74-99) mg/dL Calcium 7.7 L (8.4-10.2) mg/dL Total Protein 5.7 L (6.3-8.2) g/dL Albumin 3.2 L (3.5-5.0) g/dL Assessment and Plan Plan: Acute non-ST elevation myocardial infarction Acute exacerbation of congestive heart failure Underlying history of hypertension Underlying history of hyperlipidemia Underlying history of coronary artery disease, last cardiac catheterization in 2019 Underlying history of CVA 2 Underlying history of peripheral vascular disease followed by Dr. Dexter Previous history of smoking At this time patient is admitted to telemetry floor, she was started on IV heparin in the emergency room she is also on IV Lasix Echocardiogram ordered cardiology consultation requested Home medications reviewed and reordered. For DVT prophylaxis patient is on IV heparin at this time for GI prophylaxis Will add Protonix Will follow closely prognosis is guarded
[2022-03-28] MEDS: PANTOPRAZOLE 40 MG TABLET PO SCH (06:06)
[2022-03-28 07:49] LABS: Basophils % (A) 1 %; Eosinophils # (A) 0.2 k/uL (0-0.7); Eosinophils % (A) 4 %; HCT 35.6 % (34.0-46.0); HGB 11.2 gm/dL (11.4-16.0); Hypochromasia Slight; Lymphocytes # (A) 1.1 k/uL (1.0-4.8); Lymphocytes % (A) 19 %; MCH 31.4 pg (25.0-35.0); MCHC 31.4 g/dL (31.0-37.0); MCV 100.2 fL (80.0-100.0); Macrocytosis Slight; Mean Platelet Volume 7.7; Monocytes # (A) 0.5 k/uL (0-1.0); Monocytes % (A) 9 %; Neutrophils # (A) 3.7 k/uL (1.3-7.7); Neutrophils % (A) 66 %; Platelet Count 265 k/uL (150-450); RBC 3.55 m/uL (3.80-5.40); RDW 15.1 % (11.5-15.5); WBC 5.6 k/uL (3.8-10.6)
[2022-03-28 07:55] LABS: Albumin 3.4 g/dL (3.5-5.0); Calcium 7.7 mg/dL (8.4-10.2); Potassium 4.5 mmol/L (3.5-5.1); Total Bilirubin 0.6 mg/dL (0.2-1.3)
[2022-03-28] MEDS: HEPARIN SODIUM,PORCINE/PF 5,000 UNIT/0.5 ML SYRINGE SQ SCH ×2 (08:35→18:02)
[2022-03-28] MEDS: ASPIRIN 81 MG PO SCH (08:35)
[2022-03-28] MEDS: ISOSORBIDE MONONITRATE ER 30 MG TAB.ER.24H PO SCH (08:35)
[2022-03-28] MEDS: amLODIPine 10 MG TAB PO SCH (08:36)
[2022-03-28] MEDS: LOSARTAN 25 MG TAB PO SCH (08:36)
[2022-03-28] MEDS: FUROSEMIDE 20 MG TAB PO SCH ×2 (08:36→18:02)
[2022-03-28] MEDS: ATORVASTATIN 80 MG TAB PO SCH (08:36)
--- NOTE | 2022-03-28 12:01 | P.PN ---
Subjective This is a 86 year old female with past medical history of coronary artery disease, aortic stenosis, aortic regurgitation, dyslipidemia. She follows in the office with Dr. Escamilla. We are following patient for congestive heart failure and NSTEMI. Patient presents with worsening shortness of breath, LE edema, weight gain. Patient started on IV Lasix. EKG showed sinus bradycardia with secondary ST-T wave changes, she was started on IV heparin drip and currently being treated medically for her NSTEMI. Echocardiogram revealed EF of 5055 %, moderate severe aortic stenosis with a peak/mean gradient of 73 mmHg/35 mmHg, moderate aortic regurgitation, mild to moderate tricuspid regurgitation, moderate mitral regurgitation, severe pulmonary hypertension RVSP of 62 mmHg 03/28/2022 Patient seen and examined at bedside, no acute distress. Her breathing has improved. She denies any chest pain. Patient kept overnight secondary to bradycardia and junctional rhythm. Patient with -875mL fluid balance for the past 24 hours. Telemetry reviewed patient in and out of junctional rhythm HR 50s and sinus bradycardia Meds: PO Lasix 40mb BID, aspirin 81 mg daily, amlodipine 10 mg daily, losartan 25 mg daily, Imdur 30 mg daily Labs: Sodium 135, potassium 4.5, BUN 36, serum creatinine 1.7 Vitals reviewed GENERAL: Well-appearing, well-nourished and in no acute distress. NECK: Supple without JVD LUNGS: Breath sounds diminished bilateral bases to auscultation bilaterally. Respiration equal and unlabored. No wheezes, rales or rhonchi. HEART: Regular rate and rhythm, No rubs or gallops. S1 and S2 heard.Systolic ejection murmur at right sternal border and apex noted. EXTREMITIES: Normal range of motion, no edema. No clubbing or cyanosis. Lauren pheral pulses intact. ASSESSMENT NSTEMI Acute on chronic heart failure with preserved ejection fraction Junction rhythm Sinus bradycardia Moderate to severe aortic stenosis Moderate mitral regurgitation Moderate aortic regurgitation Pulmonary hypertension Coronary artery disease Dyslipidemia PLAN Secondary to junctional rhythm, bradycardia, recommend pacemaker implantation. This was discussed with the patient. Unfortunately no family to call at this time, secondary to patient's daughter in the hospital at [place]. Patient would like to think about pacemaker implantation and will inform us of her decision Patient unable to tolerated beta blockers secondary to above Continue PO Lasix, imdur 30mg daily, Losartan and amlodipine Further conditions based on clinical course Nurse Practitioner note has been reviewed, I agree with a documented findings and plan of care. Patient was seen and examined. Objective - Vital Signs Vital signs: Vital Signs Temp 98.0 F 03/28/22 03:41 Pulse 51 L 03/28/22 03:41 Resp 16 03/28/22 03:41 BP 135/58 03/28/22 03:41 Pulse Ox 94 L 03/28/22 03:41 FiO2 Intake & Output 03/27/22 03/28/22 03/28/22 18:59 06:59 18:59 Intake Total 125 180 Output Total 700 300 200 Balance -575 -300 -20 Weight 62 kg Intake: Oral 125 180 Output: Urine 700 300 200 Other: Voiding Method Bedside Commode # Voids 1 1 # Bowel Movements 1 1 - Labs CBC & Chem 7: 03/28/22 07:16 03/28/22 07:16 Labs: Abnormal Lab Results - Last 24 Hours (Table) 03/28/22 03/28/22 Range/Units 07:16 07:16 RBC 3.55 L (3.80-5.40) m/uL Hgb 11.2 L (11.4-16.0) gm/dL MCV 100.2 H (80.0-100.0) fL Sodium 135 L (137-145) mmol/L BUN 36 H (7-17) mg/dL Creatinine 1.76 H (0.52-1.04) mg/dL Glucose 109 H (74-99) mg/dL Calcium 7.7 L (8.4-10.2) mg/dL AST 43 H (14-36) U/L Total Protein 6.0 L (6.3-8.2) g/dL Albumin 3.4 L (3.5-5.0) g/dL
[2022-03-28 15:10] VITALS: RESP 16
--- NOTE | 2022-03-28 16:52 | P.DS ---
Providers Date of admission: 03/24/22 14:13 Expected date of discharge: 03/28/22 Attending physician: Lizbeth Gallagher Consults: 03/24/22 14:12 Consult Physician Routine Consulting Provider: [facility] Consult Reason/Comments: nstemi, chf, hx of aortic stenosis Do you want consulting provider notified?: Already Contacted Primary care physician: Digna Farley [facility] Course: Diagnosis on discharge: Acute non-ST elevation myocardial infarction Acute exacerbation of congestive heart failure Underlying history of hypertension Underlying history of hyperlipidemia Underlying history of coronary artery disease, last cardiac catheterization in 2019 Underlying history of CVA 2 Underlying history of peripheral vascular disease followed by Dr. Dexter Previous history of smoking Hospital course: Maryjo Núñez, is an 86-year-old female who presented to [facility] emergency room with a chief complaint of worsening shortness of breath over the last 10 days, patient was also complaining of cough with greenish sputum production, she was treated with increased dose of Lasix as outpatient however her symptoms continued to worsen and she decided to come to emergency room, patient also stated that she had about 7 pounds weight gain over the last week. She was evaluated in the emergency room vital examination on presentation revealed a temperature of 97.7 pulse 45 respiration 20 blood pressure 199/53 pulse ox 88% on room air Laboratory data revealed a white blood count of 6.7 hemoglobin 11.3 platelet count 231 sodium 135 potassium 4.1 chloride 105 CO2 23 BUN 30 creatinine 1.55 troponin level 0.3 BNP 9500 COVID-19 PCR was negative Testing in the emergency room revealed EKG done in the emergency room revealed supraventricular bradycardia with left anterior fascicular block, chest x-ray revealed no evidence for acute pulmonary disease, patient was started on IV heparin. Patient was admitted to medical floor for further evaluation and treatment On 03/26/2022 patient was seen and examined on the telemetry floor she is alert and oriented 3 in no apparent distress, she reports some improvement in her shortness of breath since admission otherwise she denies any complaints there is no fever or chills no headache or dizziness no chest pain no palpitation no cough no nausea or vomiting no abdominal pain no diarrhea no blood in the stools no burning with urination no frequency or urgency and no hematuria. There is no weakness or numbness in any of the extremities there is no change in vision speech or gait. On 03/27/2022 patient was seen and examined on the telemetry floor she is alert and oriented 3 in no distress she improved significantly, she was evaluated by cardiology this morning and was cleared for discharge, however subsequently patient had changes on her telemetry EKG revealed evidence of junctional rhythm which is new for her, cardiology were notified, discharge was canceled patient will be monitored for 1 more day on telemetry floor On 03/28/2022 patient was seen and examined on the telemetry floor she is alert and oriented 3 in no apparent distress she was reevaluated by cardiology today and due to having junctional rhythm she was advised to have a pacemaker placement, at this time patient was not sure whether she wants to proceed with having a pacemaker or not she stated that she will follow-up as outpatient with cardiology, and can be readmitted if she decides to proceed with pacemaker placement. During this admission dose of Norvasc was increased from 5 mg to 10 mg daily she was given a prescription for that he was also given a prescription for Lasix 20 mg by mouth twice daily Protonix 40 mg once daily losartan 25 mg once daily Imdur 30 mg once daily. She will follow-up with her primary care physician within 1 week she will follow-up with cardiology in 1-2 weeks Patient Condition at Discharge: Serious Plan - Discharge Summary Discharge Rx Participant: No New Discharge Prescriptions: New Isosorbide Mononitrate ER [Imdur] 30 mg PO DAILY tab Losartan [Cozaar] 25 mg PO DAILY tab Furosemide [Lasix] 20 mg PO BID@0900,1600 tab amLODIPine [Norvasc] 10 mg PO DAILY tab Pantoprazole [Protonix] 40 mg PO AC-BRKFST tab Continue Aspirin 81 mg PO DAILY Fish Oil/Dha/Epa [Fish Oil 1,200 mg Fish Oil] 1 cap PO DAILY Alendronate Sodium 70 mg PO MO Atorvastatin [Lipitor] 80 mg PO DAILY Calcium 1200mg/Vitamin D3 1000mcg 1 tab PO DAILY Discontinued amLODIPine [Norvasc] 5 mg PO DAILY hydrALAZINE HCL [Apresoline] 10 mg PO BID Furosemide [Lasix] 10 mg PO DAILY Discharge Medication List Alendronate Sodium 70 mg PO MO 03/04/15 [History] Aspirin 81 mg PO DAILY 03/04/15 [History] Fish Oil/Dha/Epa [Fish Oil 1,200 mg Fish Oil] 1 cap PO DAILY 03/04/15 [History] Atorvastatin [Lipitor] 80 mg PO DAILY 03/24/22 [History] Calcium 1200mg/Vitamin D3 1000mcg 1 tab PO DAILY 03/24/22 [History] Furosemide [Lasix] 20 mg PO BID@0900,1600 tab 03/27/22 [Rx] Isosorbide Mononitrate ER [Imdur] 30 mg PO DAILY tab 03/27/22 [Rx] Losartan [Cozaar] 25 mg PO DAILY tab 03/27/22 [Rx] Pantoprazole [Protonix] 40 mg PO AC-BRKFST tab 03/27/22 [Rx] amLODIPine [Norvasc] 10 mg PO DAILY tab 03/27/22 [Rx] Follow up Appointment(s)/Referral(s): Digna Farley MD [Primary Care Provider] - 03/30/22 1:00 pm Abelino Escamilla MD [STAFF PHYSICIAN] - 04/04/22 2:00 pm
[2022-03-28 17:58] VITALS: BP 145/55; PULSE 54; TEMP 97.9
== END 2022-03-28 17:55 | disposition home health service (06) | DRG 280 ==
LOC: EC 12:10 → 3SCARD 14:13
PROVIDERS: ADMIT Internal Medicine; ATTEND Internal Medicine
DX: I21.4 Non-ST elevation (NSTEMI) myocardial infarction (principal); I50.33 Acute on chronic diastolic (congestive) heart failure; I11.0 Hypertensive heart disease with heart failure; I25.10 Atherosclerotic heart disease of native coronary artery without angina pectoris; I27.20 Pulmonary hypertension, unspecified; I65.29 Occlusion and stenosis of unspecified carotid artery; I44.1 Atrioventricular block, second degree; I44.4 Left anterior fascicular block; R00.1 Bradycardia, unspecified; I73.9 Peripheral vascular disease, unspecified; R09.02 Hypoxemia; Z20.822 Contact with and (suspected) exposure to COVID-19; D64.9 Anemia, unspecified; E78.5 Hyperlipidemia, unspecified; F17.210 Nicotine dependence, cigarettes, uncomplicated; I08.3 Combined rheumatic disorders of mitral, aortic and tricuspid valves; Z66 Do not resuscitate; Z79.82 Long term (current) use of aspirin; Z79.899 Other long term (current) drug therapy; Z86.73 Personal history of transient ischemic attack (TIA), and cerebral infarction without residual deficits
CPT/HCPCS: 36415; 71046; 80048; 80053; 83735; 83880; 84443; 84484; 85025; 85610; 85730; 87502; 87635; 93005; 93306; 94640; 94760; 96365; 96366; 96375; 99291

== ENCOUNTER 2022-05-25 21:24 | Inpatient (IN) | payer MEDICARE ==
--- NOTE | 2022-05-25 21:41 | ED ---
Neuro HPI - General Stated Complaint: Altered Mental Status Time Seen by Provider: 05/25/22 21:28 - History of Present Illness Is the patient presenting with stroke symptoms?: Yes Last Known Well Time: 20:40 -: minutes(s) Initial Comments: This patient is an 87-year-old woman brought to have evaluation for suspected stroke. Patient was at home attempting to use bathroom when she acutely developed -sided weakness. Patient's family noticed that she also had garbled speech. EMS was called and brought the patient to have evaluation. Patient's family gives further history the patient has what they're describing as end- stage congestive heart failure. They state that she has serious valvular disease and not considered operative candidate. They state they were told that the patient has life expectancy of probably 3 months. When I interview the patient, she is denying headache. She is able to answer simple yes no questions and follow neurologic exam. Location: speech, left arm, left leg History of same: No Place: home Severity: severe Quality: weak Improves With: none Worsens With: none On Anticoagulants: No Context: sudden onset Treatments Prior to Arrival: other medication, oxygen - Related Data Home Medications: Home Medications Medication Instructions Recorded Confirmed Alendronate Sodium 70 mg PO MO 03/04/15 05/26/22 Aspirin 81 mg PO DAILY 03/04/15 05/26/22 Fish Oil/Dha/Epa [Fish Oil 1,200 1 cap PO DAILY 03/04/15 05/26/22 mg Fish Oil] Calcium 1200mg/Vitamin D3 1000mcg 1 tab PO DAILY 03/24/22 05/26/22 Furosemide [Lasix] 20 mg PO DAILY 05/26/22 05/26/22 Previous Rx's Medication Instructions Recorded Isosorbide Mononitrate ER [Imdur] 30 mg PO DAILY tab 03/27/22 Losartan [Cozaar] 25 mg PO DAILY tab 03/27/22 Pantoprazole [Protonix] 40 mg PO AC-BRKFST tab 03/27/22 amLODIPine [Norvasc] 10 mg PO DAILY tab 03/27/22 Allergies/Adverse Reactions: Allergies Allergy/AdvReac Type Severity Reaction Status Date / Time venom-honey bee Allergy Swelling Verified 05/26/22 09:41 [bee venom (honey bee)] Review of Systems ROS Statement: Those systems with pertinent positive or pertinent negative responses have been documented in the HPI. ROS Other: All systems not noted in ROS Statement are negative. Limitations: ROS unobtainable due to patients medical condition Constitutional: Denies: fever Respiratory: Denies: cough, dyspnea Cardiovascular: Denies: chest pain Gastrointestinal: Denies: abdominal pain, vomiting Musculoskeletal: Denies: back pain Neurological: Reports: weakness. Denies: headache General Exam General appearance: alert, in no apparent distress Head exam: Present: atraumatic, normocephalic Eye exam: Present: normal appearance. Absent: scleral icterus, conjunctival injection Respiratory exam: Present: rhonchi. Absent: respiratory distress, wheezes, rales, stridor Cardiovascular Exam: Present: bradycardia, irregular rhythm, systolic murmur. Absent: rubs, gallop GI/Abdominal exam: Present: soft. Absent: distended, tenderness, guarding, rebound, rigid, mass Extremities exam: Present: normal inspection, normal capillary refill. Absent: pedal edema, calf tenderness Back exam: Present: normal inspection. Absent: CVA tenderness (R), CVA tenderness (L) Neurological exam: Present: alert, motor sensory deficit Skin exam: Present: warm, dry, intact, normal color. Absent: rash Stroke MDM - Lab Data Result diagrams: 05/25/22 21:50 05/25/22 21:50 Lab Results 05/25/22 05/25/22 05/25/22 Range/Units 21:50 21:50 21:50 WBC 7.9 (3.8-10.6) k/uL RBC 3.42 L (3.80-5.40) m/uL Hgb 10.9 L (11.4-16.0) gm/dL Hct 35.5 (34.0-46.0) % MCV 103.6 H (80.0-100.0) fL MCH 32.0 (25.0-35.0) pg MCHC 30.9 L (31.0-37.0) g/dL RDW 17.5 H (11.5-15.5) % Plt Count 215 (150-450) k/uL MPV 8.5 Neutrophils % 78 % Lymphocytes % 13 % Monocytes % 6 % Eosinophils % 1 % Basophils % 1 % Neutrophils # 6.1 (1.3-7.7) k/uL Lymphocytes # 1.0 (1.0-4.8) k/uL Monocytes # 0.5 (0-1.0) k/uL Eosinophils # 0.1 (0-0.7) k/uL Basophils # 0.0 (0-0.2) k/uL Hypochromasia Moderate Anisocytosis Slight Macrocytosis Moderate PT 11.3 (9.0-12.0) sec INR 1.1 (<1.2) APTT 21.6 L (22.0-30.0) sec Sodium 137 (137-145) mmol/L Potassium 5.0 (3.5-5.1) mmol/L Chloride 98 (98-107) mmol/L Carbon Dioxide 27 (22-30) mmol/L Anion Gap 12 mmol/L BUN 51 H (7-17) mg/dL Creatinine 1.91 H (0.52-1.04) mg/dL Est GFR (CKD-EPI)AfAm 26 (>60 ml/min/1.73 sqM) Est GFR (CKD-EPI)NonAf 23 (>60 ml/min/1.73 sqM) Glucose 131 H (74-99) mg/dL Calcium 8.9 (8.4-10.2) mg/dL Total Bilirubin 1.3 (0.2-1.3) mg/dL AST 28 (14-36) U/L ALT 24 (4-34) U/L Alkaline Phosphatase 60 (38-126) U/L Troponin I (0.000-0.034) ng/mL Total Protein 6.5 (6.3-8.2) g/dL Albumin 3.9 (3.5-5.0) g/dL 05/25/22 Range/Units 21:50 WBC (3.8-10.6) k/uL RBC (3.80-5.40) m/uL Hgb (11.4-16.0) gm/dL Hct (34.0-46.0) % MCV (80.0-100.0) fL MCH (25.0-35.0) pg MCHC (31.0-37.0) g/dL RDW (11.5-15.5) % Plt Count (150-450) k/uL MPV Neutrophils % % Lymphocytes % % Monocytes % % Eosinophils % % Basophils % % Neutrophils # (1.3-7.7) k/uL Lymphocytes # (1.0-4.8) k/uL Monocytes # (0-1.0) k/uL Eosinophils # (0-0.7) k/uL Basophils # (0-0.2) k/uL Hypochromasia Anisocytosis Macrocytosis PT (9.0-12.0) sec INR (<1.2) APTT (22.0-30.0) sec Sodium (137-145) mmol/L Potassium (3.5-5.1) mmol/L Chloride (98-107) mmol/L Carbon Dioxide (22-30) mmol/L Anion Gap mmol/L BUN (7-17) mg/dL Creatinine (0.52-1.04) mg/dL Est GFR (CKD-EPI)AfAm (>60 ml/min/1.73 sqM) Est GFR (CKD-EPI)NonAf (>60 ml/min/1.73 sqM) Glucose (74-99) mg/dL Calcium (8.4-10.2) mg/dL Total Bilirubin (0.2-1.3) mg/dL AST (14-36) U/L ALT (4-34) U/L Alkaline Phosphatase (38-126) U/L Troponin I 0.141 H* (0.000-0.034) ng/mL Total Protein (6.3-8.2) g/dL Albumin (3.5-5.0) g/dL - Medical Decision Making Patient is a 7-year-old woman presenting with findings suggestive of acute ischemic stroke. Initial workup negative. The case was discussed with the stroke team and it was felt that risks outweigh benefits of TPA. Patient admi tted for medical management and to have cardiology evaluation as well. Patient's family makes clear that she would not want CPR or machine life- support. 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 Past Anesthesia/Blood Transfusion Reactions: No Reported Reaction Past Psychological History: No Psychological Hx Reported Smoking Status: Former smoker Past Alcohol Use History: Rare Additional Past Alcohol Use History / Comment(s): quit smoking approx 1999, smoked <1ppd Past Drug Use History: None Reported - Past Family History Brother(s) Family Medical History: Cancer Sister(s) Family Medical History: Cancer Course Vital Signs 05/25/22 05/25/22 05/25/22 21:41 22:17 22:20 Temperature 97.6 F Pulse Rate 47 L 46 L 70 Respiratory 17 14 14 Rate Blood Pressure 91/76 66/53 66/53 O2 Sat by Pulse 91 L 84 L 84 L Oximetry 05/25/22 05/25/22 05/25/22 22:30 22:40 22:50 Temperature Pulse Rate 39 L 47 L 39 L Respiratory 10 L 10 L 11 L Rate Blood Pressure 66/53 75/63 53/34 O2 Sat by Pulse 89 L 90 L 90 L Oximetry 05/25/22 05/25/22 05/25/22 23:00 23:10 23:16 Temperature Pulse Rate 42 L 49 L 71 Respiratory 13 11 L 13 Rate Blood Pressure 53/34 48/34 48/34 O2 Sat by Pulse 86 L 88 L 92 L Oximetry 05/25/22 05/25/22 05/25/22 23:20 23:30 23:40 Temperature Pulse Rate 81 43 L Respiratory 12 13 16 Rate Blood Pressure 161/142 161/142 O2 Sat by Pulse 85 L 91 L 84 L Oximetry 05/25/22 05/26/22 05/26/22 23:50 00:00 00:10 Temperature Pulse Rate 32 L 52 L 80 Respiratory 13 12 20 Rate Blood Pressure 81/67 81/67 104/50 O2 Sat by Pulse 87 L 80 L 76 L Oximetry 05/26/22 05/26/22 05/26/22 00:20 00:30 00:40 Temperature Pulse Rate 49 L 37 L 37 L Respiratory 15 19 9 L Rate Blood Pressure 85/68 85/68 O2 Sat by Pulse 81 L 81 L 85 L Oximetry 05/26/22 05/26/22 05/26/22 00:50 01:00 01:10 Temperature Pulse Rate 42 L 44 L 42 L Respiratory 21 22 13 Rate Blood Pressure 166/152 166/152 141/123 O2 Sat by Pulse 76 L 74 L 77 L Oximetry 05/26/22 05/26/22 05/26/22 01:20 01:30 01:40 Temperature Pulse Rate 44 L 44 L 41 L Respiratory 13 12 19 Rate Blood Pressure 152/114 152/114 128/85 O2 Sat by Pulse 84 L 84 L 79 L Oximetry 05/26/22 05/26/22 05/26/22 01:50 02:00 07:02 Temperature 97.9 F Pulse Rate 40 L 37 L 54 L Respiratory 16 25 H 16 Rate Blood Pressure 129/89 129/89 103/67 O2 Sat by Pulse 87 L 84 L 91 L Oximetry 05/26/22 05/26/22 05/26/22 08:38 10:04 13:29 Temperature 98.8 F 98 F Pulse Rate 68 64 68 Respiratory 16 20 20 Rate Blood Pressure 110/60 162/56 142/63 O2 Sat by Pulse 95 90 L 90 L Oximetry 05/26/22 05/26/22 05/26/22 14:05 15:00 15:19 Temperature Pulse Rate 50 L Respiratory 18 18 20 Rate Blood Pressure 128/71 O2 Sat by Pulse Oximetry - Reevaluation(s) Reevaluation #1: 05/25/22 22:07 The patient is manages a code stroke. I discussed the case with Dr. Ansari, who states that he believes risks outweigh benefits associated with TPA for this patient's underlying comorbidities and states patient to be medical management 05/25/22 22:08 Critical Care Time Critical Care Time: Yes (30 minutes) Disposition Clinical Impression: Left-sided weakness, Dysarthria, Hypotension, NSTEMI (non-ST elevated myocardia l infarction), Bradycardia Disposition: ADMITTED IP TO THIS HOSP Condition: Serious Is patient prescribed a controlled substance at d/c from ED?: No
--- NOTE | 2022-05-25 22:08 | CT ---
EXAMINATION TYPE: CT brain wo con for TPA CT DLP: 1096.6 mGycm, Automated exposure control for dose reduction was used. DATE OF EXAM: 05/25/2022 10:02 PM COMPARISON: None. CLINICAL INDICATION:Female, 87 years old with history of Neuro deficit, acute, stroke suspected, Code stroke TECHNIQUE: Brain: Multiple axial CT images of the brain were obtained without IV contrast. Coronal and sagittal reformats reviewed. FINDINGS: Brain: Extra-axial spaces: No abnormal extra-axial fluid collections. Ventricular system: Within normal limits Cerebral parenchyma: No acute intraparenchymal hemorrhage or mass effect. The aguilar-white junction is well differentiated. Scattered hypoattenuating areas are seen within the white matter. Cerebral vol ume loss. Cerebellum: Unremarkable. Mass effect: No evidence of midline shift. Intracranial vasculature: Atherosclerotic calcifications of the intracranial vessels. Soft tissues: Normal. Calvarium/osseous structures: No depressed skull fracture. Paranasal sinuses and mastoid air cells: Mild scattered paranasal sinus disease. Visualized orbits: Bilateral aphakia IMPRESSION: 1. No acute intracranial process. 2. Nonspecific white matter changes, likely secondary to chronic small vessel ischemic disease.
[2022-05-25 22:11] LABS: Anisocytosis Slight; Basophils % (A) 1 %; Eosinophils # (A) 0.1 k/uL (0-0.7); Eosinophils % (A) 1 %; HCT 35.5 % (34.0-46.0); HGB 10.9 gm/dL (11.4-16.0); Hypochromasia Moderate; Lymphocytes % (A) 13 %; MCHC 30.9 g/dL (31.0-37.0); MCV 103.6 fL (80.0-100.0); Macrocytosis Moderate; Mean Platelet Volume 8.5; Monocytes # (A) 0.5 k/uL (0-1.0); Monocytes % (A) 6 %; Neutrophils # (A) 6.1 k/uL (1.3-7.7); Neutrophils % (A) 78 %; Platelet Count 215 k/uL (150-450); RBC 3.42 m/uL (3.80-5.40); RDW 17.5 % (11.5-15.5); WBC 7.9 k/uL (3.8-10.6)
--- NOTE | 2022-05-25 22:22 | XR ---
EXAMINATION TYPE: XR chest 1V portable DATE OF EXAM: 05/25/2022 COMPARISON: 03/24/2022 HISTORY: Short of breath TECHNIQUE: FINDINGS: There is pulmonary interstitial and airspace edema. There is blunting of the costophrenic a ngles. Thoracic aorta is atheromatous. Heart is enlarged. IMPRESSION: Congestive heart failure with pleural effusions. Pulmonary congestion and pleural fluid i ncreased compared to old exam.
[2022-05-25 22:29] LABS: Albumin 3.9 g/dL (3.5-5.0); Calcium 8.9 mg/dL (8.4-10.2); Total Bilirubin 1.3 mg/dL (0.2-1.3); Total Protein 6.5 g/dL (6.3-8.2)
--- NOTE | 2022-05-25 22:30 | CT ---
EXAMINATION TYPE: CT angio head neck DATE OF EXAM: 05/25/2022 COMPARISON: None HISTORY: AMS. Code stroke. Last known well 8pm CT DLP: 446.8 mGycm Automated exposure control for dose reduction was used. CONTRAST: Performed with IV Contrast, patient injected with 65cc mL of Isovue 370. Images obtained from the aortic arch to the vertex of the brain with the IV contrast. There are Three-D postprocessed images. There are large bilateral pleural effusions. Thoracic aorta is atheromatous. There is normal branchin g pattern of the great vessels on the aortic arch. There is arterial flow in both subclavian arteries . There is plaque formation in approximately 80% stenosis of the origin of the right subclavian arter y. There is arterial flow in the common internal and external carotid arteries bilaterally. There is moderate plaque at the left carotid artery bifurcation and approximately 90 % stenosis at the origin of the left internal carotid artery. There is mild plaque on the right side and estimated less than 1 0% stenosis of the origin right internal carotid artery. There is arterial flow in both vertebral art eries. There is arterial flow in the vertebrobasilar artery system. No evidence of carotid or vertebr al artery aneurysm or dissection. There is arterial flow in the anterior middle and posterior cerebral arteries. There is no mass effec t. No evidence of intracranial aneurysm or neovascularity. No evidence of intracranial hemodynamic ar terial stenosis. There is normal enhancement of the venous sinuses. IMPRESSION: No evidence of hemodynamic intracranial arterial stenosis. There is approximate 90% stenosis of the origin left internal carotid artery. There is approximately 10% stenosis origin right internal carotid artery. There is approximate 80% stenosis of the origin of the right subclavian artery due to plaque formatio n.
[2022-05-25 22:43] LABS: INR 1.1 (<1.2); Partial Thromboplastin Time 21.6 sec (22.0-30.0); Prothrombin Time 11.3 sec (9.0-12.0)
[2022-05-25] MEDS ORDERED: SODIUM CHLORIDE 0.9% 500 ML 250 ML IV STA (23:52)
[2022-05-26] MEDS: SODIUM CHLORIDE 0.9% 1,000 ML IV SCH ×2 (02:39→16:51)
[2022-05-26 10:08] VITALS: TEMP 98
--- NOTE | 2022-05-26 10:49 | P.HPIM ---
History of Present Illness H&P Date: 05/26/22 Chief Complaint: acute ischemic stroke This is an 87-year-old female patient of Dr. Farley. Patient's family at bedside according to family and ER report. Patient was at home attempting to the bathroom when she developed slurred speech and weakness. EMS was called and patient was transferred to the hospital according to family patient has end- stage congestive heart failure with serious valvular disease and not a candidate for operative candidate. Head CT was completed showing no acute intracranial process nonspecific white matter changes likely secondary to chronic small vessel ischemic disease. Chest x-ray completed showing congestive heart failure with pleural effusions pulmonary congestion pleural fluid increased compared to old exam. Patient has past medical history of CAD, CVA, hyperlipidemia, hypertension, ex-smoker and coronary artery disease with triple-vessel disease. According to ER records patient was not a candidate for TPA and it was felt the risk outweigh the benefits of TPA. At this time patient is resting in bed. Patient has moaning but denies any pain. At this time patient's daughter and granddaughter at bedside requesting hospice consult would like patient to go home under hospice care. Patient denies chest pain or shortness breath. Patient denies nausea vomiting or diarrhea. Patient denies any urinary burning or frequency Review of Systems Please refer to HPI otherwise unremarkable 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 Past Anesthesia/Blood Transfusion Reactions: No Reported Reaction Past Psychological History: No Psychological Hx Reported Smoking Status: Former smoker Past Alcohol Use History: Rare Additional Past Alcohol Use History / Comment(s): quit smoking approx 1999, smoked <1ppd Past Drug Use History: None Reported - Past Family History Brother(s) Family Medical History: Cancer Sister(s) Family Medical History: Cancer Medications and Allergies Home Medications Medication Instructions Recorded Confirmed Type Alendronate Sodium 70 mg PO MO 03/04/15 05/26/22 History Aspirin 81 mg PO DAILY 03/04/15 05/26/22 History Fish Oil/Dha/Epa [Fish Oil 1,200 1 cap PO DAILY 03/04/15 05/26/22 History mg Fish Oil] Calcium 1200mg/Vitamin D3 1000mcg 1 tab PO DAILY 03/24/22 05/26/22 History Isosorbide Mononitrate ER [Imdur] 30 mg PO DAILY tab 03/27/22 05/26/22 Rx Losartan [Cozaar] 25 mg PO DAILY tab 03/27/22 05/26/22 Rx Pantoprazole [Protonix] 40 mg PO AC-BRKFST tab 03/27/22 05/26/22 Rx amLODIPine [Norvasc] 10 mg PO DAILY tab 03/27/22 05/26/22 Rx Furosemide [Lasix] 20 mg PO DAILY 05/26/22 05/26/22 History Allergies Allergy/AdvReac Type Severity Reaction Status Date / Time venom-honey bee Allergy Swelling Verified 05/26/22 09:41 [bee venom (honey bee)] Physical Exam Vitals: Vital Signs Temp Pulse Resp BP Pulse Ox 05/26/22 10:04 98 F 64 20 162/56 90 L 05/26/22 08:38 98.8 F 68 16 110/60 95 05/26/22 07:02 97.9 F 54 L 16 103/67 91 L 05/26/22 02:00 37 L 25 H 129/89 84 L 05/26/22 01:50 40 L 16 129/89 87 L 05/26/22 01:40 41 L 19 128/85 79 L 05/26/22 01:30 44 L 12 152/114 84 L 05/26/22 01:20 44 L 13 152/114 84 L 05/26/22 01:10 42 L 13 141/123 77 L 05/26/22 01:00 44 L 22 166/152 74 L 05/26/22 00:50 42 L 21 166/152 76 L 05/26/22 00:40 37 L 9 L 85 L 05/26/22 00:30 37 L 19 85/68 81 L 05/26/22 00:20 49 L 15 85/68 81 L 05/26/22 00:10 80 20 104/50 76 L 05/26/22 00:00 52 L 12 81/67 80 L 05/25/22 23:50 32 L 13 81/67 87 L 05/25/22 23:40 43 L 16 84 L 05/25/22 23:30 81 13 161/142 91 L 05/25/22 23:20 12 161/142 85 L 05/25/22 23:16 71 13 48/34 92 L 05/25/22 23:10 49 L 11 L 48/34 88 L 05/25/22 23:00 42 L 13 53/34 86 L 05/25/22 22:50 39 L 11 L 53/34 90 L 05/25/22 22:40 47 L 10 L 75/63 90 L 05/25/22 22:30 39 L 10 L 66/53 89 L 05/25/22 22:20 70 14 66/53 84 L 05/25/22 22:17 46 L 14 66/53 84 L 05/25/22 21:41 97.6 F 47 L 17 91/76 91 L Intake and Output 05/25/22 05/26/22 05/26/22 22:59 06:59 14:59 Other: Weight 80.195 kg Head normocephalic Neck supple Lungs clear to auscultation bilaterally no wheezing or crackles Heart regular rate and rhythm S1-S2, no rub or gallop Abdomen is soft nontender nondistended positive bowel sounds no hepatosplenomegaly Extremities no edema. Lower extremity edematous Neuro alert and orientated to 3. Sleepy but does respond. Denies pain Results CBC & Chem 7: 05/25/22 21:50 05/25/22 21:50 Labs: Abnormal Lab Results - Last 24 Hours (Table) 05/25/22 05/25/22 05/25/22 Range/Units 21:50 21:50 21:50 RBC 3.42 L (3.80-5.40) m/uL Hgb 10.9 L (11.4-16.0) gm/dL MCV 103.6 H (80.0-100.0) fL MCHC 30.9 L (31.0-37.0) g/dL RDW 17.5 H (11.5-15.5) % APTT 21.6 L (22.0-30.0) sec BUN 51 H (7-17) mg/dL Creatinine 1.91 H (0.52-1.04) mg/dL Glucose 131 H (74-99) mg/dL Troponin I (0.000-0.034) ng/mL 05/25/22 05/26/22 Range/Units 21:50 09:13 RBC (3.80-5.40) m/uL Hgb (11.4-16.0) gm/dL MCV (80.0-100.0) fL MCHC (31.0-37.0) g/dL RDW (11.5-15.5) % APTT (22.0-30.0) sec BUN (7-17) mg/dL Creatinine (0.52-1.04) mg/dL Glucose (74-99) mg/dL Troponin I 0.141 H* 0.407 H* (0.000-0.034) ng/mL Assessment and Plan Assessment: 1. Acute ischemic stroke. Not a candidate for TPA 2. History of congestive heart failure 3. History of coronary artery disease with triple-vessel disease not operative candidate 4. History of hyperlipidemia 5. History of CVA 2 6. History of peripheral vascular disease followed by Dr. Dexter 7. Previous history of smoking At this time patient's family at bedside requesting hospice consult and patient to be discharged home under hospice care. Discussed with case management Time with Patient: Greater than 30 (Greater than 60% of the total time spent in counseling and coordination of care)
--- NOTE | 2022-05-26 12:20 | P.CRDCN ---
History of Present Illness Consult date: 05/26/22 History of present illness: HISTORY OF PRESENT ILLNESS: This is a 87-year-old female with a past medical history significant for TIA/CVA, home O2, severe aortic stenosis, coronary artery disease with known severe disease involving the left main, congestive heart failure, hypertension, and carotid stenosis. Patient follows in the office with Dr. Escamilla. We have been asked to see the patient in consultation for abnormal troponins. Patient examine d at the bedside. Patient is currently lethargic and unable to provide any history. Patient's daughter is at the bedside. She reports yesterday the patient was in the bathroom and her left arm became limp and she had slurred speech. EMS was called and the patient was brought to the hospital. Patient's daughter states the patient was not complaining of any chest pain or shortness of breath. * EKG appears to be sinus bradycardia, however has baseline artifact, cannot rule out underlying AV block * Chest xray congestive heart failure with pleural effusions * CT angiogram revealed 90% left carotid stenosis and 10% right carotid stenosis * CT brain: Negative for acute process * Laboratory data: WBC 7.9. Hemoglobin 10.9. Platelet count 215. Sodium 137. Potassium 5.0. BUN 51. Creatinine 1.91. Troponin 0.141. 0.407. * Current home cardiac medications include Lasix 20 mg daily, Imdur 30 mg daily, losartan 25 mg daily, Norvasc 10 mg daily, aspirin 81 mg daily * Most recent echocardiogram obtained in March 2022 revealed ejection fraction 50-55%, severe pulmonary hypertension, severe aortic stenosis, severe mitral calcification with moderate mitral regurgitation * Cardiac catheterization history: July 2021 revealing extremely calcified right and left coronary system. Critical disease involving the ostial RCA. Her cardiac disease involving ostial left main coronary artery. REVIEW OF SYSTEMS: At the time of my exam: CONSTITUTIONAL: Denies fever or chills. HEENT: Denies blurred vision, vision changes, or eye pain. Denies hemoptysis CARDIOVASCULAR: Denies chest pain. Denies orthopnea. Denies PND. Denies palpitations RESPIRATORY: Denies shortness of breath. GASTROINTESTINAL: Denies abdominal pain. Denies nausea or vomiting. HEMATOLOGIC: Denies bleeding disorders. GENITOURINARY: Denies any blood in urine. SKIN: Denies pruitis. Denies rash. PHYSICAL EXAM: VITAL SIGNS: Reviewed. GENERAL: Well-developed in no acute distress. HEENT: Head is normocephalic. Pupils are equal, round. Sclerae anicteric. Mucous membranes of the mouth are moist. Neck supple. No JVD or thyromegaly LUNGS: Respirations even and unlabored. Lungs diminished bilaterally HEART: Regular rate and rhythm. S1 and S2 heard. Systolic murmur noted ABDOMEN: Soft. Nondistended. Nontender. EXTREMITIES: Normal range of motion. No clubbing or cyanosis. Peripheral pulses intact. 23+ bilateral lower extremity edema NEUROLOGIC: Lethargic ASSESSMENT: Acute CVA Bradycardia, appears to be SB, but can not rule out underlying AV block as EKG has baseline artifact Coronary artery disease with known severe disease involving the left main Acute on chronic congestive heart failure with preserved ejection fraction Abnormal troponins, may be secondary to CKD, can not rule out underlying Non- STEMI Severe aortic stenosis History of CVA/TIA History of home O2 Hypertension Carotid stenosis PLAN: Repeat EKG Patient currently lethargic and unable to take oral medications Lengthy discussion held at the bedside with Dr. Benjamin and daughter. Comfort care/hospice recommended. Daughter agreeable. Discussed with Dr. Gallagher's GARMENT SUPERVISOR, Thania. Prognosis remains very poor Further recommendations pending patient course Nurse practitioner note has been reviewed by physician. Signing provider agrees with the documented findings, assessment, and plan of care. 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 Past Anesthesia/Blood Transfusion Reactions: No Reported Reaction Past Psychological History: No Psychological Hx Reported Smoking Status: Former smoker Past Alcohol Use History: Rare Additional Past Alcohol Use History / Comment(s): quit smoking approx 1999, smoked <1ppd Past Drug Use History: None Reported - Past Family History Brother(s) Family Medical History: Cancer Sister(s) Family Medical History: Cancer Medications and Allergies Home Medications Medication Instructions Recorded Confirmed Type Alendronate Sodium 70 mg PO MO 03/04/15 05/26/22 History Aspirin 81 mg PO DAILY 03/04/15 05/26/22 History Fish Oil/Dha/Epa [Fish Oil 1,200 1 cap PO DAILY 03/04/15 05/26/22 History mg Fish Oil] Calcium 1200mg/Vitamin D3 1000mcg 1 tab PO DAILY 03/24/22 05/26/22 History Isosorbide Mononitrate ER [Imdur] 30 mg PO DAILY tab 03/27/22 05/26/22 Rx Losartan [Cozaar] 25 mg PO DAILY tab 03/27/22 05/26/22 Rx Pantoprazole [Protonix] 40 mg PO AC-BRKFST tab 03/27/22 05/26/22 Rx amLODIPine [Norvasc] 10 mg PO DAILY tab 03/27/22 05/26/22 Rx Furosemide [Lasix] 20 mg PO DAILY 05/26/22 05/26/22 History Allergies Allergy/AdvReac Type Severity Reaction Status Date / Time venom-honey bee Allergy Swelling Verified 05/26/22 09:41 [bee venom (honey bee)] Physical Exam Vitals: Vital Signs Temp Pulse Resp BP Pulse Ox 05/26/22 10:04 98 F 64 20 162/56 90 L 05/26/22 08:38 98.8 F 68 16 110/60 95 05/26/22 07:02 97.9 F 54 L 16 103/67 91 L 05/26/22 02:00 37 L 25 H 129/89 84 L 05/26/22 01:50 40 L 16 129/89 87 L 05/26/22 01:40 41 L 19 128/85 79 L 05/26/22 01:30 44 L 12 152/114 84 L 05/26/22 01:20 44 L 13 152/114 84 L 05/26/22 01:10 42 L 13 141/123 77 L 05/26/22 01:00 44 L 22 166/152 74 L 05/26/22 00:50 42 L 21 166/152 76 L 05/26/22 00:40 37 L 9 L 85 L 05/26/22 00:30 37 L 19 85/68 81 L 05/26/22 00:20 49 L 15 85/68 81 L 05/26/22 00:10 80 20 104/50 76 L 05/26/22 00:00 52 L 12 81/67 80 L 05/25/22 23:50 32 L 13 81/67 87 L 05/25/22 23:40 43 L 16 84 L 05/25/22 23:30 81 13 161/142 91 L 05/25/22 23:20 12 161/142 85 L 05/25/22 23:16 71 13 48/34 92 L 05/25/22 23:10 49 L 11 L 48/34 88 L 05/25/22 23:00 42 L 13 53/34 86 L 05/25/22 22:50 39 L 11 L 53/34 90 L 05/25/22 22:40 47 L 10 L 75/63 90 L 05/25/22 22:30 39 L 10 L 66/53 89 L 05/25/22 22:20 70 14 66/53 84 L 05/25/22 22:17 46 L 14 66/53 84 L 05/25/22 21:41 97.6 F 47 L 17 91/76 91 L Intake and Output 05/25/22 05/26/22 05/26/22 22:59 06:59 14:59 Other: Weight 80.195 kg Results 05/25/22 21:50 05/25/22 21:50 Cardiac Enzymes 05/25/22 05/25/22 05/26/22 Range/Units 21:50 21:50 09:13 AST 28 (14-36) U/L Troponin I 0.141 H* 0.407 H* (0.000-0.034) ng/mL Coagulation 05/25/22 Range/Units 21:50 PT 11.3 (9.0-12.0) sec APTT 21.6 L (22.0-30.0) sec CBC 05/25/22 Range/Units 21:50 WBC 7.9 (3.8-10.6) k/uL RBC 3.42 L (3.80-5.40) m/uL Hgb 10.9 L (11.4-16.0) gm/dL Hct 35.5 (34.0-46.0) % Plt Count 215 (150-450) k/uL Comprehensive Metabolic Panel 09/22/22 Range/Units 21:50 Sodium 137 (137-145) mmol/L Potassium 5.0 (3.5-5.1) mmol/L Chloride 98 (98-107) mmol/L Carbon Dioxide 27 (22-30) mmol/L BUN 51 H (7-17) mg/dL Creatinine 1.91 H (0.52-1.04) mg/dL Glucose 131 H (74-99) mg/dL Calcium 8.9 (8.4-10.2) mg/dL AST 28 (14-36) U/L ALT 24 (4-34) U/L Alkaline Phosphatase 60 (38-126) U/L Total Protein 6.5 (6.3-8.2) g/dL Albumin 3.9 (3.5-5.0) g/dL Current Medications Generic Name Dose Route Start Last Admin Trade Name Freq PRN Reason Stop Dose Admin Aspirin 325 mg 05/27/22 09:00 Aspirin 325 Mg Tab PO DAILY ALEX Atorvastatin Calcium 80 mg 05/26/22 21:00 Atorvastatin 80 Mg Tab PO HS ALEX Sodium Chloride 1,000 mls @ 20 mls/hr 05/26/22 00:30 05/26/22 02:39 Saline 0.9% IV 20 mls/hr .Q24H ALEX Administration Intake and Output 05/25/22 05/26/22 05/26/22 22:59 06:59 14:59 Other: Weight 80.195 kg 05/25/22 21:50 05/25/22 21:50
[2022-05-26] MEDS: LORazepam 0.5 MG TAB PO PRN ×2 (12:51→13:15)
[2022-05-26] MEDS: MORPHINE CONC SOLN 10mg/0.5mL ORAL SYRG PO SCH ×2 (12:59→13:30)
[2022-05-26] MEDS ORDERED: LORazepam 2 MG/ML INJ IV PRN (14:52)
[2022-05-26] MEDS ORDERED: MORPHINE SULFATE 4 MG/ML SYRINGE IV PRN (14:52)
[2022-05-26] MEDS ORDERED: MORPHINE SULFATE 2 MG/ML SYRINGE IV PRN (14:52)
[2022-05-26] MEDS ORDERED: ONDANSETRON 4 MG/2 ML VIAL IVP PRN (14:52)
[2022-05-26] MEDS ORDERED: SCOPOLAMINE 1 MG/72 HR PATCH TRANSDERM SCH (15:00)
[2022-05-26] MEDS ORDERED: MORPHINE SULFATE (100 MG/2 ML) 100 MG in SODIUM CHLORIDE 0.9% 100 ML IV SCH (15:00)
[2022-05-26] MEDS ORDERED: MORPHINE SULFATE 4 MG/ML SYRINGE IVP PRN (15:15)
[2022-05-26 16:55] VITALS: BP 146/64; PULSE 64; RESP 22
[2022-05-26] MEDS ORDERED: MORPHINE CONC SOLN 10mg/0.5mL ORAL SYRG PO SCH (17:30)
[2022-05-26] MEDS ORDERED: ATORVASTATIN 80 MG TAB PO SCH (21:00)
[2022-05-27] MEDS ORDERED: ASPIRIN 325 MG TAB PO SCH (09:00)
--- NOTE | 2022-05-31 13:47 | CDI ---
Documentation Clarification Form Date: 05/31/22 From: Dalia Cabrera Admit Date: 05/26/2022 12:25:00 AM Patient Name: Maryjo Núñez Visit Number: [id number] Discharge Date: 05/26/2022 04:58:00 PM ATTENTION: The Clinical Documentation Specialists (CDI) and [facility] Coding Staff appreciate your assistance in clarifying documentation. Please respond to the clarification below the line at the bottom and electronically sign. The CDI & [facility] Coding staff will review the response and follow-up if needed. Please note: Queries are made part of the Legal Health Record. If you have any questions, please contact the author of this message via ITS. Dr. Lizbeth Gallagher, Non-ST Myocardial infarction (UT) is documented in the ED Note. Per Cardiology consult: Abnormal troponins, may be secondary to CKD, cannot rule out underlying Non-STEMI. Additional clarification regarding the type of UT is requested. 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 Troponin: 0.141, 0.407 EKG Results: EKG appears to sinus bradycardia, however has baseline artifact cannot rule out underlying AV block Treatment: Cardiology consult, converted to hospice Please clarify the type of UT, if known: [ ] NSTEMI (type 1) [ ] Type II UT due to (please specify etiology) [ ] UT ruled out [ x ] Unable to determine [ ] Other Condition, please specify MTDD
--- NOTE | 2022-06-05 10:33 | CDI ---
Documentation Clarification Form Date: 06/05/22 Admit Date: 05/26/2022 12:25:00 AM Patient Name: Maryjo Núñez Visit Number: [id number] Discharge Date: 05/26/2022 04:58:00 PM ATTENTION: The Clinical Documentation Specialists (CDI) and [facility] Coding Staff appreciate your assistance in clarifying documentation. Please respond to the clarification below the line at the bottom and electronically sign. The CDI & [facility] Coding staff will review the response and follow-up if needed. Please note: Queries are made part of the Legal Health Record. If you have any questions, please contact the author of this message via ITS. Dr. Carla Benjamin, Non-ST Myocardial infarction (MT) is documented in the ED Note. Per your consult: Abnormal troponins, may be secondary to CKD, cannot rule out underlying Non-STEMI. Additional clarification regarding the type of MT is requested. 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 Troponin: 0.141, 0.407 EKG Results: EKG appears to sinus bradycardia, however has baseline artifact cannot rule out underlying AV block Treatment: Cardiology consult, converted to hospice Please clarify the type of MT, if known: [ ] NSTEMI (type 1) [ ] Type II MT due to (please specify etiology) [ ] MT ruled out [ xx] Unable to determine [ ] Other Condition, please specify MTDD
--- NOTE | 2022-06-07 11:43 | P.DS ---
Providers Date of admission: 05/26/22 00:25 Expected date of discharge: 05/26/22 Attending physician: Lizbeth Gallagher Consults: 05/26/22 00:26 Consult Physician Routine Consulting Provider: Willie Martínez Consult Reason/Comments: acute ischemic stroke Do you want consulting provider notified?: Yes Consult Physician Routine Consulting Provider: Abelino Escamilla Consult Reason/Comments: elevated troponin. Do you want consulting provider notified?: Yes Primary care physician: Digna Farley Hospital Course: Discharge diagnosis 1. Acute ischemic stroke. Not a candidate for TPA 2. History of congestive heart failure 3. History of coronary artery disease with triple-vessel disease not operative candidate 4. History of hyperlipidemia 5. History of CVA 2 6. History of peripheral vascular disease followed by Dr. Dexter 7. Previous history of smoking Hospital course This is an 87-year-old female patient of Dr. Farley. Patient's family at bedside according to family and ER report. Patient was at home attempting to the bathroom when she developed slurred speech and weakness. EMS was called and patient was transferred to the hospital according to family patient has end- stage congestive heart failure with serious valvular disease and not a candidate for operative candidate. Head CT was completed showing no acute intracranial process nonspecific white matter changes likely secondary to chronic small vessel ischemic disease. Chest x-ray completed showing congestive heart failure with pleural effusions pulmonary congestion pleural fluid increased compared to old exam. Patient has past medical history of CAD, CVA, hyperlipidemia, hypertension, ex-smoker and coronary artery disease with triple-vessel disease. According to ER records patient was not a candidate for TPA and it was felt the risk outweigh the benefits of TPA. At this time patient is resting in bed. Patient has moaning but denies any pain. At this time patient's daughter and granddaughter at bedside requesting hospice consult would like patient to go home under hospice care. Patient denies chest pain or shortness breath. Patient denies nausea vomiting or diarrhea. Patient denies any urinary burning or frequency Per family decision patient will be admitted to hospice care and patient Patient Condition at Discharge: Serious Plan - Discharge Summary New Discharge Prescriptions: No Action Aspirin 81 mg PO DAILY Fish Oil/Dha/Epa [Fish Oil 1,200 mg Fish Oil] 1 cap PO DAILY Alendronate Sodium 70 mg PO MO Isosorbide Mononitrate ER [Imdur] 30 mg PO DAILY tab Furosemide [Lasix] 20 mg PO DAILY Calcium 1200mg/Vitamin D3 1000mcg 1 tab PO DAILY Losartan [Cozaar] 25 mg PO DAILY tab amLODIPine [Norvasc] 10 mg PO DAILY tab Pantoprazole [Protonix] 40 mg PO AC-BRKFST tab Discharge Medication List Alendronate Sodium 70 mg PO MO 03/04/15 [History] Aspirin 81 mg PO DAILY 03/04/15 [History] Fish Oil/Dha/Epa [Fish Oil 1,200 mg Fish Oil] 1 cap PO DAILY 03/04/15 [History] Calcium 1200mg/Vitamin D3 1000mcg 1 tab PO DAILY 03/24/22 [History] Isosorbide Mononitrate ER [Imdur] 30 mg PO DAILY tab 03/27/22 [Rx] Losartan [Cozaar] 25 mg PO DAILY tab 03/27/22 [Rx] Pantoprazole [Protonix] 40 mg PO AC-BRKFST tab 03/27/22 [Rx] amLODIPine [Norvasc] 10 mg PO DAILY tab 03/27/22 [Rx] Furosemide [Lasix] 20 mg PO DAILY 05/26/22 [History] Follow up Appointment(s)/Referral(s): Digna Farley MD [Primary Care Provider] - 1-2 days Discharge Disposition: [facility] TO [facility]
== END 2022-05-26 16:58 | disposition hospice, inpatient (51) | DRG 64 ==
LOC: EC 21:24 → 3SCARD 05-26 00:25 → 5NMEDONC 05-26 14:57
PROVIDERS: ADMIT Internal Medicine; ATTEND Internal Medicine
DX: I63.9 Cerebral infarction, unspecified (principal); I50.33 Acute on chronic diastolic (congestive) heart failure; G81.94 Hemiplegia, unspecified affecting left nondominant side; I50.84 End stage heart failure; I11.0 Hypertensive heart disease with heart failure; I95.9 Hypotension, unspecified; I73.9 Peripheral vascular disease, unspecified; Z66 Do not resuscitate; Z51.5 Encounter for palliative care; R47.1 Dysarthria and anarthria; R29.719 NIHSS score 19; I65.23 Occlusion and stenosis of bilateral carotid arteries; I35.0 Nonrheumatic aortic (valve) stenosis; I25.10 Atherosclerotic heart disease of native coronary artery without angina pectoris; E78.5 Hyperlipidemia, unspecified; R77.8 Other specified abnormalities of plasma proteins; R00.1 Bradycardia, unspecified; Z79.82 Long term (current) use of aspirin; Z79.899 Other long term (current) drug therapy; Z79.83 Long term (current) use of bisphosphonates; Z86.73 Personal history of transient ischemic attack (TIA), and cerebral infarction without residual deficits; Z87.891 Personal history of nicotine dependence; Z91.030 Bee allergy status
CPT/HCPCS: 36415; 70450; 70496; 70498; 71045; 80053; 84484; 85025; 85610; 85730; 93005; 96374; 99291

== ENCOUNTER 2022-05-26 14:44 | Inpatient (IN) | payer MEDICAID ==
[2022-05-26] MEDS ORDERED: LORazepam 1 MG/0.5 ML VIAL IV PRN (14:46)
[2022-05-26] MEDS ORDERED: MORPHINE SULFATE 2 MG/ML SYRINGE IV PRN (14:46)
[2022-05-26] MEDS ORDERED: ACETAMINOPHEN SUPPOSITORY 650 MG SUPP RECTAL PRN (14:46)
[2022-05-26] MEDS ORDERED: ONDANSETRON 4 MG/2 ML VIAL IVP PRN (14:46)
[2022-05-26] MEDS ORDERED: MORPHINE SULFATE 4 MG/ML SYRINGE IV PRN (14:46)
[2022-05-26] MEDS ORDERED: MORPHINE SULFATE (100 MG/2 ML) 100 MG in SODIUM CHLORIDE 0.9% 100 ML IV SCH (15:00)
[2022-05-26] MEDS ORDERED: SCOPOLAMINE 1 MG/72 HR PATCH TRANSDERM SCH (15:00)
[2022-05-26] MEDS ORDERED: MORPHINE SULFATE 4 MG/ML SYRINGE IVP PRN (15:26)
[2022-05-26] MEDS ORDERED: ATROPINE OPHTH SOLN 1% 5ML BTL SUBLINGUAL PRN (15:27)
[2022-05-27 03:40] VITALS: RESP 8
== END 2022-05-27 16:25 | disposition expired | DRG 951 ==
LOC: 5NMEDONC 17:37
PROVIDERS: ADMIT Internal Medicine; ATTEND Internal Medicine
DX: Z51.5 Encounter for palliative care (principal); I63.9 Cerebral infarction, unspecified; I25.10 Atherosclerotic heart disease of native coronary artery without angina pectoris; I50.9 Heart failure, unspecified; I11.0 Hypertensive heart disease with heart failure; R47.81 Slurred speech; R53.1 Weakness; I73.9 Peripheral vascular disease, unspecified; E78.5 Hyperlipidemia, unspecified; Z86.73 Personal history of transient ischemic attack (TIA), and cerebral infarction without residual deficits; Z91.030 Bee allergy status; Z98.51 Tubal ligation status; Z98.42 Cataract extraction status, left eye; Z98.41 Cataract extraction status, right eye